=== PATIENT | female | born 1965 | race Caucasian/White ===

== ENCOUNTER 2018-09-25 17:51 | Inpatient (IN) | payer MEDICAID | END 2018-09-27 16:30 | disposition home or self-care (01) | LOC: PCU 3S 09-26 02:02 → ER 17:51 → ED HOLD 19:56 ==

== ENCOUNTER 2020-06-12 05:59 | Inpatient (IN) | payer MEDICAID ==
[~2020-06-12] VITALS: Ht 165.1 cm; Wt 113.6 kg
[~2020-06-12 05:59] MED LIST: ALB0.5UD IH; CYCL-394 PO; DICY10CA88 PO; FENO134C PO; HYDR-3686 PO; LAMO25TA94 PO; OMEP20CA4 PO; SIMV-42 PO; TRAZ-251 PO; ZES10T PO
[2020-06-12] MEDS ORDERED: normal saline 1000ML IV soln IVB STA (06:06)
[2020-06-12] MEDS ORDERED: triamcinolone acetonide 40mg/ml inj IM ONE (06:10)
[2020-06-12] MEDS ORDERED: diphenhydrAMINE 50 mg/ml inj IV ONE (06:10)
[2020-06-12] MEDS ORDERED: epiNEPHrine 1 mg/ml inj SQ ONE (06:10)
[2020-06-12] MEDS ORDERED: methylPREDNISolone sod succ 125mg/2ml vial IV ONE (06:10)
[2020-06-12] MEDS ORDERED: ipratropium/albuterol 3ml nebule NEB ONE (06:10)
[2020-06-12] MEDS ORDERED: famotidine/PF 10 mg/ml inj IV ONE (06:10)
--- NOTE | 2020-06-12 06:49 | NUR ---
pt state that she is having a reaction to lisiopril her dr just lowered her dose from 20 to 10 mg once a day
--- NOTE | 2020-06-12 06:52 | NUR ---
asking more she stated that she did have some armenian spicy chips that she has never had before round noon and around 1999 is when she noticed the swelling
[2020-06-12] MEDS ORDERED: tranexamic acid 100mg/ml inj. IV ONE (07:25)
[2020-06-12 08:18] LABS: BASOPHILS % (AUTO) 0.1 % (0-1); EOSINOPHILS % (AUTO) 0.2 % (0-6); HEMATOCRIT 42.8 % (35.0-45.0); HEMOGLOBIN 14.5 g/dl (12.0-16.0); LYMPHOCYTES % (AUTO) 10.1 % (21-51); MEAN CORPUSCULAR HEMOGLOBIN 29.8 PG (27.0-31.0); MEAN CORPUSCULAR HGB CONC 33.9 g/dL (33.0-36.5); MEAN CORPUSCULAR VOLUME 87.9 FL (78-98); MONOCYTES # (AUTO) 0.2 X10'3 (0-0.9); MONOCYTES % (AUTO) 2.3 % (2-12); NEUTROPHILS # (AUTO) 8.4 X10'3 (1.8-7.7); NEUTROPHILS % (AUTO) 87.3 % (42-75); PLATELET COUNT 196 X10'3 (140-440); RED BLOOD COUNT 4.87 X10'6 (4.20-5.60); RED CELL DISTRIBUTION WIDTH 14.5 % (11.5-14.5); WHITE BLOOD COUNT 9.6 X10'3 (4.5-11.0)
[2020-06-12] MEDS ORDERED: DIVA-81 PO (08:45)
[2020-06-12] MEDS ORDERED: BUSP10TA11 PO (08:45)
[2020-06-12] MEDS ORDERED: MELA10TA PO (08:45)
[2020-06-12] MEDS ORDERED: ROSU5TAB PO (08:45)
[2020-06-12] MEDS ORDERED: ALB0.5UD IH (08:45)
[2020-06-12] MEDS ORDERED: HYDR12.55 PO (08:45)
[2020-06-12] MEDS ORDERED: BUDE0.5A11 NEB (08:45)
[2020-06-12] MEDS ORDERED: DIVA500T9 PO (08:45)
[2020-06-12] MEDS ORDERED: METF500T PO (08:45)
[2020-06-12] MEDS ORDERED: GABA-530 PO (08:45)
[2020-06-12] MEDS ORDERED: LEVO25CA4 PO (08:45)
[2020-06-12] MEDS ORDERED: potassium CL 10mEq/100ml bag 100 ML IV PRN ×2 (09:05)
[2020-06-12] MEDS ORDERED: MESSAGE TO PHARMACY PO ONE (09:05)
[2020-06-12] MEDS ORDERED: albuterol 2.5 MG/3 ML nebule NEB PRN (09:05)
[2020-06-12] MEDS ORDERED: acetaminophen 325mg tablet PO PRN (09:05)
[2020-06-12] MEDS ORDERED: potassium Cl 20 mEq SR tablet PO PRN ×2 (09:05)
[2020-06-12] MEDS ORDERED: magnesium 2GM in 50ml NS 50 ML IV PRN (09:05)
[2020-06-12] MEDS ORDERED: insulin Lispro (HumaLOG) vial - multi-dose SQ SCH (09:05)
[2020-06-12] MEDS ORDERED: glucagon, human recombinant 1mg kit SUBCUT PRN (09:05)
[2020-06-12] MEDS ORDERED: dextrose ORAL solution 15 GM/59 ML bottle PO PRN ×2 (09:05)
[2020-06-12] MEDS ORDERED: dextrose 50%-water 50ml dispensing syringe IV PRN ×2 (09:05)
[2020-06-12] MEDS ORDERED: magnesium Cl slow-release 64mg tablet PO PRN (09:05)
[2020-06-12] MEDS ORDERED: ondansetron/PF 4mg/2ml inj IV PRN (09:05)
[2020-06-12] MEDS ORDERED: magnesium 4gm in 100ml NS 100 ML IV PRN (09:05)
[2020-06-12] MEDS: normal saline 1000ml 1,000 ML IV SCH (09:38)
[2020-06-12] MEDS: loratadine 10mg tablet PO SCH (09:38)
[2020-06-12] MEDS: montelukast 10mg tablet PO SCH (09:39)
[2020-06-12] MEDS: pantoprazole 40mg Tablet.DR PO SCH ×2 (09:39→20:15)
[2020-06-12 09:55] LABS: CLARITY,URINE CLEAR (Clear); COLOR,URINE YELLOW (Yellow); GLUCOSE, URINE NEGATIVE (Neg); KETONES,URINE TRACE mg/dl (Neg); LEUKOCYTE ESTERASE ,URINE NEGATIVE (Neg); NITRITES, URINE NEGATIVE (Neg); OCCULT BLOOD,URINE NEGATIVE (Neg); PROTEIN,URINE NEGATIVE (Neg)
[2020-06-12 09:56] LABS: UA COLLECTION TYPE CLN CATCH MIDSTREAM
[2020-06-12 10:08] LABS: ALANINE AMINOTRANSFERASE 16 U/L (12-78); ALBUMIN 3.1 G/DL (3.4-5.0); ALBUMIN/GLOBULIN RATIO 0.9 (1.1-1.5); ALKALINE PHOSPHATASE 68 IU/L (46-116); ANION GAP 5 (8-16); ASPARTATE AMINO TRANSFERASE 13 U/L (10-37); BILIRUBIN,TOTAL 0.6 MG/DL (0.1-1.0); BLOOD UREA NITROGEN 6 MG/DL (7-18); BUN/CREATININE RATIO 10.5 (6.6-38.0); CALCIUM 8.6 MG/DL (8.5-10.1); CHLORIDE 100 MMOL/L (99-107); CREATININE 0.57 MG/DL (0.40-0.90); GLUCOSE 133 MG/DL (70-104); HEMOGLOBIN A1C 5.7 % (4.5-6.2); POTASSIUM 3.9 MMOL/L (3.5-5.1); SODIUM 135 MMOL/L (135-145); TOTAL CARBON DIOXIDE 30.1 MMOL/L (24-32); TOTAL PROTEIN 6.4 G/DL (6.4-8.2); eGFR > 90 ML/MIN
[2020-06-12] MEDS ORDERED: BUDE10.2 INH (13:12)
--- NOTE | 2020-06-12 13:43 | NUR ---
swelling in face and hands decrecing pt states she even feels like the swelling is going down
--- NOTE | 2020-06-12 15:10 | NUR ---
pt got back from the bathroom and says she feels like her face is swelling some more again R side of face does appear to be a littel bit more swollen her eye was starting to open but now appear swollen and not opening much again
--- NOTE | 2020-06-12 16:23 | NUR ---
dr sims in to see pt feels swelling has not increased
[2020-06-12 20:00] VITALS: BP 136/76
[2020-06-12] MEDS: K and/or MAG REPLACEMENT MC SCH (20:00)
[2020-06-12] MEDS: methylPREDNISolone sod succ/PF 40mg inj. IV SCH (20:14)
[2020-06-12] MEDS: divalproex sodium 500mg tablet.DR PO SCH (20:15)
[2020-06-12] MEDS: busPIRone 5mg tablet PO SCH (20:15)
[2020-06-12] MEDS: docusate sod 100mg capsule PO SCH (20:15)
[2020-06-12] MEDS: heparin, porcine 5000 units/ml vial SQ SCH (20:17)
[2020-06-12] MEDS: acetaminophen 325mg tablet PO PRN (20:18)
[2020-06-12] MEDS: diphenhydrAMINE 25mg capsule PO PRN (20:19)
[2020-06-12] MEDS ORDERED: insulin glargine (Lantus) pen - multi-dose SQ SCH (21:00)
--- NOTE | 2020-06-12 21:00 | NUR ---
PT S/P ALLERGIC REACTION. PT WITH GENERALIZED SWELLING AND FACIAL SWELLING AND LIPS BUT DOES NOT INCLUDE HER TONGUE. PT ALSO HAS HIVES OVER MUCH OF HER BODY.
[2020-06-13] MEDS: normal saline 1000ml 1,000 ML IV SCH ×2 (00:23→13:41)
[2020-06-13 02:00] VITALS: BP 109/65
[2020-06-13] MEDS: diphenhydrAMINE 25mg capsule PO PRN (06:07)
--- NOTE | 2020-06-13 06:34 | NUR ---
Problems reprioritized. Patient report given, questions answered & plan of care reviewed with LAVINIA. Addendum: 06/13/20 at 0635 by Artem Mast RN Amended: Links added.
--- NOTE | 2020-06-13 06:38 | NUR ---
Patient in room PCU 3012. I have received report from SANDI Rick and had the opportunity to ask questions and assume patient care.
[2020-06-13 06:57] VITALS: BP 127/67
[2020-06-13 06:59] LABS: BASOPHILS % (AUTO) 0.1 % (0-1); EOSINOPHILS % (AUTO) 0 % (0-6); HEMATOCRIT 37.1 % (35.0-45.0); HEMOGLOBIN 12.6 g/dl (12.0-16.0); LYMPHOCYTES # (AUTO) 0.8 X10'3 (1.1-4.8); LYMPHOCYTES % (AUTO) 6.4 % (21-51); MEAN CORPUSCULAR HEMOGLOBIN 29.8 PG (27.0-31.0); MEAN CORPUSCULAR HGB CONC 33.9 g/dL (33.0-36.5); MEAN CORPUSCULAR VOLUME 88.1 FL (78-98); MEAN PLATELET VOLUME 7.7 FL (7.4-10.4); MONOCYTES # (AUTO) 0.4 X10'3 (0-0.9); MONOCYTES % (AUTO) 2.8 % (2-12); NEUTROPHILS # (AUTO) 11.2 X10'3 (1.8-7.7); NEUTROPHILS % (AUTO) 90.7 % (42-75); PLATELET COUNT 181 X10'3 (140-440); RED BLOOD COUNT 4.21 X10'6 (4.20-5.60); RED CELL DISTRIBUTION WIDTH 14.7 % (11.5-14.5); WHITE BLOOD COUNT 12.3 X10'3 (4.5-11.0)
[2020-06-13] MEDS: divalproex sodium 500mg tablet.DR PO SCH (07:04)
[2020-06-13] MEDS: busPIRone 5mg tablet PO SCH (07:04)
[2020-06-13] MEDS: montelukast 10mg tablet PO SCH (07:04)
[2020-06-13] MEDS: docusate sod 100mg capsule PO SCH (07:04)
[2020-06-13] MEDS: loratadine 10mg tablet PO SCH (07:04)
[2020-06-13] MEDS: methylPREDNISolone sod succ/PF 40mg inj. IV SCH (07:05)
[2020-06-13] MEDS: pantoprazole 40mg Tablet.DR PO SCH (07:05)
[2020-06-13 07:19] LABS: ALANINE AMINOTRANSFERASE 14 U/L (12-78); ALBUMIN 2.8 G/DL (3.4-5.0); ALBUMIN/GLOBULIN RATIO 0.8 (1.1-1.5); ALKALINE PHOSPHATASE 60 IU/L (46-116); ANION GAP 7 (8-16); ASPARTATE AMINO TRANSFERASE 8 U/L (10-37); BILIRUBIN,TOTAL 0.3 MG/DL (0.1-1.0); BLOOD UREA NITROGEN 10 MG/DL (7-18); BUN/CREATININE RATIO 19.6 (6.6-38.0); CALCIUM 9.7 MG/DL (8.5-10.1); CHLORIDE 105 MMOL/L (99-107); CREATININE 0.51 MG/DL (0.40-0.90); GLUCOSE 146 MG/DL (70-104); POTASSIUM 4.3 MMOL/L (3.5-5.1); SODIUM 139 MMOL/L (135-145); TOTAL PROTEIN 6.1 G/DL (6.4-8.2); eGFR > 90 ML/MIN
[2020-06-13] MEDS: heparin, porcine 5000 units/ml vial SQ SCH (07:20)
[2020-06-13] MEDS ORDERED: atorvastatin 20mg tablet PO SCH (08:00)
[2020-06-13] MEDS: K and/or MAG REPLACEMENT MC SCH (08:00)
--- NOTE | 2020-06-13 08:00 | NUR ---
Patient c/o of continued itching, swelling and meds given have not been effective. Dr. Felder notified. PAGER ID: [phone] MESSAGE: [id number]- Anthony De Guzman c/o increased swelling, itching and rashes. given Solumedrol and Claritin 0700 and Benadryl given 0607 and is not effective. Thank you= Dontrell [phone] Addendum: 06/13/20 at 0803 by Dontrell Camarillo RN Patient is alert and oriented and does not c/o SOB. Able to hold conversation. Will continue to monitor.
[2020-06-13] MEDS ORDERED: diphenhydrAMINE 25mg capsule PO ONE (08:20)
--- NOTE | 2020-06-13 10:20 | NUR ---
Patient in room ALEXANDER 350. I have received report from Wen JUNIOR in PCU and had the opportunity to ask questions and will assume patient care once to Med/Surg unit.
--- NOTE | 2020-06-13 10:27 | NUR ---
Problems reprioritized. Patient report given, questions answered & plan of care reviewed with SANDI Rowe.
--- NOTE | 2020-06-13 10:35 | NUR ---
Patient transferred to room 350a via wheelchair with all belongings.
--- NOTE | 2020-06-13 10:40 | NUR ---
Pt arrived to Med/Surg unit via w/c and accompanied by staff member, to room 350A. Pt oriented to room and assessed. No s/sx distress, no c/o at this time, given opportunity to ask qustions, answers provided. Will continue to monitor.
[2020-06-13 11:00] VITALS: BP 126/75
[2020-06-13] MEDS ORDERED: DIPH-423 PO (11:36)
[2020-06-13] MEDS ORDERED: PRED10TA23 PO (11:37)
[2020-06-13] MEDS: acetaminophen 325mg tablet PO PRN (12:48)
--- NOTE | 2020-06-13 14:00 | NUR ---
Pt stable and appropriate for d/c. PIV d/c'd cannula intact. Reviewed with Pt all d/c instructions and meds with patient given opportunity to ask questions, answers provided and pt verbalized understanding. Prescriptions escripted to pharmacy of choice. Pt to call PCP with any questions/concerns, s/sx of complications/infection or return to nearest ED. Pt escorted to front lobby by staff member via w/c with all personal belongings. D/C'd home in private vehicle driven by family.
== END 2020-06-13 14:00 | disposition home or self-care (01) | DRG 385 ==
LOC: ER 06:00 → ED HOLD 09:02 → PCU 3S 19:30 → SUR 3N 06-13 10:30
PROVIDERS: ADMIT Internal Medicine; ATTEND Internal Medicine
DX: L50.0 Allergic urticaria (principal); Z88.8 Allergy status to other drugs, medicaments and biological substances; G89.29 Other chronic pain; E78.5 Hyperlipidemia, unspecified; I25.10 Atherosclerotic heart disease of native coronary artery without angina pectoris; J44.9 Chronic obstructive pulmonary disease, unspecified; F32.9 Major depressive disorder, single episode, unspecified; K21.9 Gastro-esophageal reflux disease without esophagitis; M54.9 Dorsalgia, unspecified; I10 Essential (primary) hypertension; Z88.1 Allergy status to other antibiotic agents; E78.00 Pure hypercholesterolemia, unspecified; E03.9 Hypothyroidism, unspecified; T46.4X5A Adverse effect of angiotensin-converting-enzyme inhibitors, initial encounter; E11.9 Type 2 diabetes mellitus without complications; Z90.710 Acquired absence of both cervix and uterus; Z90.49 Acquired absence of other specified parts of digestive tract; Z87.891 Personal history of nicotine dependence; Y92.89 Other specified places as the place of occurrence of the external cause
CPT/HCPCS: 36415; 71045; 80053; 81003; 82948; 83036; 83735; 85025; 85651; 93005; 94640; 94760; 96372; 96374; 99285; G0378; J0171; J1200; J1644; J1815; J2920; J2930; J3301; J3490; J7030; Q0163

== ENCOUNTER 2020-11-07 11:42 | Emergency (ER) | payer MEDICAID ==
[~2020-11-07] VITALS: Ht 165.1 cm; Wt 114.0 kg
[~2020-11-07 11:42] MED LIST changes: +BUDE10.2 INH; +BUSP10TA11 PO; +DIPH-423 PO; +DIVA500T9 PO; -FENO134C PO; +GABA-530 PO; -HYDR-3686 PO; +HYDR12.55 PO; -LAMO25TA94 PO; +LEVO25CA4 PO; +MELA10TA PO; +METF500T PO; +ROSU5TAB PO; -SIMV-42 PO; -TRAZ-251 PO; -ZES10T PO
[2020-11-07 12:22] VITALS: BP 152/80
[2020-11-07 12:50] LABS: CLARITY,URINE SLIGHTLY CLOUDY (Clear); COLOR,URINE YELLOW (Yellow); GLUCOSE, URINE NEGATIVE (Neg); KETONES,URINE NEGATIVE (Neg); LEUKOCYTE ESTERASE ,URINE TRACE (Neg); NITRITES, URINE NEGATIVE (Neg); OCCULT BLOOD,URINE NEGATIVE (Neg); PROTEIN,URINE NEGATIVE (Neg); UROBILINOGEN,URINE 0.2 E.U/dL (0.2-1.0)
[2020-11-07 12:55] LABS: UA COLLECTION TYPE CLN CATCH MIDSTREAM
[2020-11-07 12:57] LABS: HYALINE CASTS 0-3 /LPF (NEGATIVE); MUCUS STRANDS FEW /LPF (Neg); SQUAMOUS EPITHELIAL CELL,UR FEW /LPF (FEW)
[2020-11-07 12:58] LABS: BACTERIA,URINE FEW /HPF (Neg); RBC,URINE 0-2 /HPF (0-2); WBC,URINE 0-4 /HPF (0-4)
[2020-11-07 12:59] LABS: BASOPHILS % (AUTO) 0.6 % (0-1); EOSINOPHILS # (AUTO) 0.2 X10'3 (0-0.9); EOSINOPHILS % (AUTO) 2.5 % (0-6); HEMATOCRIT 43.5 % (35.0-45.0); HEMOGLOBIN 14.7 g/dl (12.0-16.0); LYMPHOCYTES # (AUTO) 2.5 X10'3 (1.1-4.8); LYMPHOCYTES % (AUTO) 33.6 % (21-51); MEAN CORPUSCULAR HEMOGLOBIN 29.8 PG (27.0-31.0); MEAN CORPUSCULAR HGB CONC 33.8 g/dL (33.0-36.5); MEAN CORPUSCULAR VOLUME 88.2 FL (78-98); MEAN PLATELET VOLUME 7.2 FL (7.4-10.4); MONOCYTES # (AUTO) 0.5 X10'3 (0-0.9); NEUTROPHILS # (AUTO) 4.2 X10'3 (1.8-7.7); NEUTROPHILS % (AUTO) 56.3 % (42-75); PLATELET COUNT 298 X10'3 (140-440); RED BLOOD COUNT 4.93 X10'6 (4.20-5.60); WHITE BLOOD COUNT 7.4 X10'3 (4.5-11.0)
[2020-11-07 13:07] LABS: ALANINE AMINOTRANSFERASE 25 U/L (12-78); ALBUMIN 3.7 G/DL (3.4-5.0); ALKALINE PHOSPHATASE 97 IU/L (46-116); ANION GAP 11 (8-16); ASPARTATE AMINO TRANSFERASE 19 U/L (10-37); BILIRUBIN,TOTAL 0.3 MG/DL (0.1-1.0); BLOOD UREA NITROGEN 5 MG/DL (7-18); BUN/CREATININE RATIO 7.1 (6.6-38.0); CALCIUM 8.8 MG/DL (8.5-10.1); CHLORIDE 98 MMOL/L (99-107); GLUCOSE 89 MG/DL (70-104); LIPASE 95 U/L (73-393); POTASSIUM 3.9 MMOL/L (3.5-5.1); SODIUM 140 MMOL/L (135-145); TOTAL CARBON DIOXIDE 30.6 MMOL/L (24-32); TOTAL PROTEIN 7.4 G/DL (6.4-8.2); eGFR 86 ML/MIN
[2020-11-07] MEDS ORDERED: CEPH250T PO (13:57)
[2020-11-07] MEDS ORDERED: SULF1TAB45 PO (13:57)
[2020-11-07] MEDS ORDERED: bacitracin 15gm ointment TP ONE (14:45)
== END 2020-11-07 15:23 | disposition home or self-care (01) ==
LOC: ER 11:43
DX: N61.1 Abscess of the breast and nipple (principal); B95.8 Unspecified staphylococcus as the cause of diseases classified elsewhere; E78.00 Pure hypercholesterolemia, unspecified; I10 Essential (primary) hypertension; J45.909 Unspecified asthma, uncomplicated; K21.9 Gastro-esophageal reflux disease without esophagitis; E11.9 Type 2 diabetes mellitus without complications; E07.9 Disorder of thyroid, unspecified; G89.29 Other chronic pain; Z90.49 Acquired absence of other specified parts of digestive tract; Z98.51 Tubal ligation status; Z90.710 Acquired absence of both cervix and uterus; Z79.899 Other long term (current) drug therapy; Z88.1 Allergy status to other antibiotic agents; Z88.6 Allergy status to analgesic agent
CPT/HCPCS: 36415; 80053; 81001; 83690; 85025; 87088; 99283

== ENCOUNTER 2020-11-14 15:26 | Inpatient (IN) | payer MEDICAID ==
[~2020-11-14] VITALS: Ht 165.1 cm; Wt 110.8 kg
[~2020-11-14 15:26] MED LIST changes: +CEPH250T PO; +SULF1TAB45 PO
[2020-11-14 16:05] LABS: BASOPHILS # (AUTO) 0.1 X10'3 (0-0.2); BASOPHILS % (AUTO) 0.7 % (0-1); EOSINOPHILS # (AUTO) 0.2 X10'3 (0-0.9); EOSINOPHILS % (AUTO) 2.2 % (0-6); HEMATOCRIT 41.2 % (35.0-45.0); HEMOGLOBIN 13.9 g/dl (12.0-16.0); LYMPHOCYTES # (AUTO) 2.5 X10'3 (1.1-4.8); MEAN CORPUSCULAR HEMOGLOBIN 29.5 PG (27.0-31.0); MEAN CORPUSCULAR HGB CONC 33.6 g/dL (33.0-36.5); MEAN CORPUSCULAR VOLUME 87.7 FL (78-98); MEAN PLATELET VOLUME 7.5 FL (7.4-10.4); MONOCYTES # (AUTO) 0.6 X10'3 (0-0.9); MONOCYTES % (AUTO) 6.3 % (2-12); NEUTROPHILS # (AUTO) 5.8 X10'3 (1.8-7.7); NEUTROPHILS % (AUTO) 63.8 % (42-75); PLATELET COUNT 281 X10'3 (140-440); RED CELL DISTRIBUTION WIDTH 15.6 % (11.5-14.5); WHITE BLOOD COUNT 9.1 X10'3 (4.5-11.0)
[2020-11-14 16:12] LABS: ALBUMIN 3.6 G/DL (3.4-5.0); ALBUMIN/GLOBULIN RATIO 1.1 (1.1-1.5); ALKALINE PHOSPHATASE 91 IU/L (46-116); ANION GAP 10 (8-16); ASPARTATE AMINO TRANSFERASE 9 U/L (10-37); BILIRUBIN,TOTAL 0.2 MG/DL (0.1-1.0); BLOOD UREA NITROGEN 12 MG/DL (7-18); BUN/CREATININE RATIO 17.6 (6.6-38.0); CALCIUM 8.8 MG/DL (8.5-10.1); CHLORIDE 97 MMOL/L (99-107); CREATININE 0.68 MG/DL (0.40-0.90); GLUCOSE 94 MG/DL (70-104); SODIUM 135 MMOL/L (135-145); TOTAL CARBON DIOXIDE 28.5 MMOL/L (24-32); eGFR 89 ML/MIN
[2020-11-14 16:21] LABS: ALANINE AMINOTRANSFERASE 7 U/L (12-78)
[2020-11-14] MEDS ORDERED: aspirin 81mg tab.chew PO ONE (18:10)
[2020-11-14] MEDS: nitroGLYCERIN 0.4mg SUBLingual tab SL PRN ×3 (18:41→19:37)
[2020-11-14] MEDS ORDERED: acetaminophen 325mg tablet PO ONE (18:45)
--- NOTE | 2020-11-14 18:55 | NUR ---
Chest pain 5/10 after first nitro administration. Pain 3/10 after second nitro administration. Pt given tylenol for associated headache. ASA not administered r/t patient allergy
--- NOTE | 2020-11-14 19:30 | NUR ---
report given and assumed care.
[2020-11-14] MEDS ORDERED: DULO60CA65 PO (19:34)
[2020-11-14] MEDS ORDERED: CLON0.2T PO (19:34)
[2020-11-14] MEDS ORDERED: ondansetron/PF 4mg/2ml inj IV ONE (19:40)
[2020-11-14] MEDS ORDERED: morphine 4 MG/ML inj SYRINge IV ONE (19:40)
[2020-11-14] MEDS ORDERED: mag hydrox/Alum hydrox/simeth 30ml oral suspension PO PRN (20:35)
[2020-11-14] MEDS ORDERED: potassium Cl 20 mEq SR tablet PO PRN ×2 (20:35)
[2020-11-14] MEDS ORDERED: insulin Lispro (HumaLOG) vial - multi-dose SQ SCH (20:35)
[2020-11-14] MEDS ORDERED: magnesium hydroxide 30ml (MOM) UD suspension PO PRN (20:35)
[2020-11-14] MEDS ORDERED: potassium Cl 40MEQ/1/2NS 520ml 520 ML IV PRN ×2 (20:35)
[2020-11-14] MEDS ORDERED: dextrose ORAL solution 15 GM/59 ML bottle PO PRN ×2 (20:35)
[2020-11-14] MEDS ORDERED: ondansetron/PF 4mg/2ml inj IV PRN (20:35)
[2020-11-14] MEDS ORDERED: regadenoson 0.4mg/5ml syringe IV PRN (20:35)
[2020-11-14] MEDS ORDERED: magnesium 2GM in 50ml NS 50 ML IV PRN (20:35)
[2020-11-14] MEDS ORDERED: acetaminophen 325mg tablet PO PRN ×2 (20:35)
[2020-11-14] MEDS ORDERED: metoprolol tartrate 1mg/ml inj IV PRN (20:35)
[2020-11-14] MEDS ORDERED: HYDROcodone/acetaminophen 10/325mg tab PO PRN (20:35)
[2020-11-14] MEDS ORDERED: aminophylline 250mg/10ml inj. IV PRN (20:35)
[2020-11-14] MEDS ORDERED: magnesium 4gm in 100ml NS 100 ML IV PRN (20:35)
[2020-11-14] MEDS ORDERED: glucagon, human recombinant 1mg kit SUBCUT PRN (20:35)
[2020-11-14] MEDS ORDERED: nitroGLYCERIN 0.4mg SUBLingual tab SL PRN (20:35)
[2020-11-14] MEDS ORDERED: MESSAGE TO PHARMACY PO ONE (20:35)
[2020-11-14] MEDS ORDERED: dextrose 50%-water 50ml dispensing syringe IV PRN ×2 (20:35)
[2020-11-14 21:00] LABS: HEMOGLOBIN A1C 6.3 % (4.5-6.2)
[2020-11-14] MEDS ORDERED: insulin glargine (Lantus) pen - multi-dose SQ SCH (21:00)
--- NOTE | 2020-11-14 21:08 | NUR ---
blood sugar checked 79. will hold med
[2020-11-14] MEDS: normal saline 1000ml 1,000 ML IV SCH (21:23)
[2020-11-14 22:35] VITALS: BP 128/52
[2020-11-14] MEDS: cloNIDine 0.1 mg tablet PO SCH (23:08)
--- NOTE | 2020-11-14 23:35 | NUR ---
Received patient report from SANDI Garcia, Patient arrived via [place], patient walked from [facility] to bed. Belongings arrived to unit with patient.
[2020-11-15] VITALS (9 sets, daily range): BP systolic 94–146; BP diastolic 46–94
[2020-11-15] MEDS: HYDROcodone/acetaminophen 5mg/325mg tablet PO PRN ×2 (01:16→05:41)
[2020-11-15] MEDS ORDERED: albuterol 2.5 MG/3 ML nebule NEB SCH (02:00)
[2020-11-15] MEDS: albuterol 2.5 MG/3 ML nebule NEB PRN ×2 (03:16→07:29)
[2020-11-15 05:58] LABS: BASOPHILS % (AUTO) 0.5 % (0-1); EOSINOPHILS # (AUTO) 0.2 X10'3 (0-0.9); EOSINOPHILS % (AUTO) 3.3 % (0-6); HEMATOCRIT 38.5 % (35.0-45.0); HEMOGLOBIN 12.9 g/dl (12.0-16.0); LYMPHOCYTES # (AUTO) 1.8 X10'3 (1.1-4.8); MEAN CORPUSCULAR HEMOGLOBIN 29.4 PG (27.0-31.0); MEAN CORPUSCULAR HGB CONC 33.5 g/dL (33.0-36.5); MEAN CORPUSCULAR VOLUME 87.9 FL (78-98); MEAN PLATELET VOLUME 7.6 FL (7.4-10.4); MONOCYTES # (AUTO) 0.4 X10'3 (0-0.9); MONOCYTES % (AUTO) 7.8 % (2-12); NEUTROPHILS # (AUTO) 2.7 X10'3 (1.8-7.7); NEUTROPHILS % (AUTO) 52.4 % (42-75); PLATELET COUNT 219 X10'3 (140-440); RED BLOOD COUNT 4.38 X10'6 (4.20-5.60); RED CELL DISTRIBUTION WIDTH 15.6 % (11.5-14.5); WHITE BLOOD COUNT 5.1 X10'3 (4.5-11.0)
[2020-11-15 06:19] LABS: ALANINE AMINOTRANSFERASE 19 U/L (12-78); ALBUMIN 3.4 G/DL (3.4-5.0); ALBUMIN/GLOBULIN RATIO 1.1 (1.1-1.5); ALKALINE PHOSPHATASE 75 IU/L (46-116); ANION GAP 5 (8-16); ASPARTATE AMINO TRANSFERASE 15 U/L (10-37); BILIRUBIN,TOTAL 0.3 MG/DL (0.1-1.0); BLOOD UREA NITROGEN 10 MG/DL (7-18); BUN/CREATININE RATIO 16.1 (6.6-38.0); CALCIUM 9.1 MG/DL (8.5-10.1); CHLORIDE 102 MMOL/L (99-107); CHOL/HDL RATIO 9.1 (0.00-4.99); CHOLESTEROL 354 MG/DL (0-200); CREATININE 0.62 MG/DL (0.40-0.90); GLUCOSE 99 MG/DL (70-104); HDL CHOLESTEROL 39 MG/DL (35-60); LDL CHOLESTEROL 222 MG/DL (50-100); MAGNESIUM 2.2 MG/DL (1.5-2.4); POTASSIUM 3.8 MMOL/L (3.5-5.1); SODIUM 135 MMOL/L (135-145); TOTAL CARBON DIOXIDE 28.4 MMOL/L (24-32); TOTAL PROTEIN 6.6 G/DL (6.4-8.2); TRIGLYCERIDES 305 MG/DL (20-135); eGFR > 90 ML/MIN
--- NOTE | 2020-11-15 06:30 | NUR ---
Patient in room ORTHO 4016. I have received report from Lincoln JUNIOR and had the opportunity to ask questions and assume patient care.
[2020-11-15] MEDS: normal saline 1000ml 1,000 ML IV SCH (06:35)
--- NOTE | 2020-11-15 06:36 | NUR ---
Problems reprioritized. Patient report given, questions answered & plan of care reviewed with SANDI Noble.
[2020-11-15] MEDS ORDERED: pantoprazole 40mg Tablet.DR PO SCH (07:30)
--- NOTE | 2020-11-15 07:59 | NUR ---
PAGER ID: [phone] MESSAGE: Real Cunningham [id number] Cammy Alex Patient gets clostrphobic and [employer] was thinking maybe one time dose of Ativan for this Test. Thanks Real.
[2020-11-15] MEDS ORDERED: divalproex sodium 500mg tablet.DR PO SCH (08:00)
[2020-11-15] MEDS ORDERED: duloxetine 30mg CAPSULE.DR PO SCH (08:00)
[2020-11-15] MEDS ORDERED: K and/or MAG REPLACEMENT MC SCH (08:00)
[2020-11-15] MEDS ORDERED: budesonide 0.5mg/2ml UD nebule IH SCH (08:00)
[2020-11-15] MEDS ORDERED: HYDROchlorothiazide 12.5mg capsule PO SCH (08:00)
[2020-11-15] MEDS ORDERED: levoTHYROXINE 25mcg tablet PO SCH (08:00)
[2020-11-15] MEDS ORDERED: gabapentin 300mg capsule PO SCH (08:00)
[2020-11-15] MEDS: cloNIDine 0.1 mg tablet PO SCH ×2 (08:23→13:19)
[2020-11-15] MEDS ORDERED: LORazepam 2 mg/ml vial IV ONE (09:10)
[2020-11-15] MEDS ORDERED: atorvastatin 20mg tablet PO SCH (09:15)
[2020-11-15] MEDS ORDERED: levoTHYROXINE 75mcg tablet PO SCH (09:18)
[2020-11-15] MEDS ORDERED: PERFLUTREN PROTEIN-A MICROSPHR 0.22 MG/ML 3ML VIAL IV ONE (12:00)
--- NOTE | 2020-11-15 12:41 | NUR ---
PAGER ID: [phone] MESSAGE: Real Cunningham [id number] Re: Kaci Alex [id number] Patient Bernarda report is available for review. Thanks
[2020-11-15] MEDS ORDERED: CLON0.1T2 PO (14:25)
[2020-11-15] MEDS ORDERED: LEVO75TA7 PO (14:25)
[2020-11-15] MEDS ORDERED: ATOR20TA66 PO (14:25)
--- NOTE | 2020-11-15 16:03 | NUR ---
PATIENT DISCHARGE WITH FAMILY IN ROOM. PATIENT DISCHARGE INCLUDED NEW MEDICATIONS AND CHANGES TO CURRENT MEDICATIONS. PATIENT IV WAS TAKEN OUT AT TIME OF DISCHARGE AND CANULA WAS WHOLE AND INTACT UPON INSPECTION. PATIENT LEFT WITH ALL BELONGINGS AND WAS TAKEN TO PRIVATE VEHICLE VIA WHEEL CHAIR BY PCT AT TIME OF DISCHARGE.
[2020-11-15] MEDS ORDERED: enoxaparin 40mg/0.4ml syringe SQ SCH (20:00)
[2020-11-16] MEDS ORDERED: levoTHYROXINE 75mcg tablet PO SCH (08:00)
== END 2020-11-15 15:50 | disposition home or self-care (01) | DRG 198 ==
LOC: ER 15:27 → OBSVTOIN 20:35 → ED HOLD 20:35 → ORTHO 4S 22:35
PROVIDERS: ADMIT Family Medicine; ATTEND Family Medicine
PROC: 4A02XM4 Measurement of Cardiac Total Activity, External Approach (ICD-10-PCS; principal; 2020-11-15)
PROC: 3E073KZ Introduction of Other Diagnostic Substance into Coronary Artery, Percutaneous Approach (ICD-10-PCS; 2020-11-15)
DX: I25.119 Atherosclerotic heart disease of native coronary artery with unspecified angina pectoris (principal); E11.42 Type 2 diabetes mellitus with diabetic polyneuropathy; E11.59 Type 2 diabetes mellitus with other circulatory complications; E78.00 Pure hypercholesterolemia, unspecified; F32.9 Major depressive disorder, single episode, unspecified; G89.29 Other chronic pain; K21.9 Gastro-esophageal reflux disease without esophagitis; M54.9 Dorsalgia, unspecified; I10 Essential (primary) hypertension; J44.9 Chronic obstructive pulmonary disease, unspecified; M79.7 Fibromyalgia; Z82.49 Family history of ischemic heart disease and other diseases of the circulatory system; Z90.49 Acquired absence of other specified parts of digestive tract; Z90.710 Acquired absence of both cervix and uterus; Z88.8 Allergy status to other drugs, medicaments and biological substances; Z98.51 Tubal ligation status
CPT/HCPCS: 36415; 71045; 78452; 80053; 80061; 82948; 83036; 83735; 83880; 84443; 84484; 85025; 87081; 93005; 93017; 93306; 94640; 94760; 96374; 96375; 99285; A9500; G0378; J1815; J2060; J2270; J2405; J2785; J7030; J7626; Q9956

== ENCOUNTER 2020-11-25 11:13 | Emergency (ER) | payer MEDICAID ==
[~2020-11-25] VITALS: Ht 165.1 cm; Wt 115.2 kg
[~2020-11-25 11:13] MED LIST changes: +ATOR20TA66 PO; -BUSP10TA11 PO; -CEPH250T PO; +CLON0.1T2 PO; -CYCL-394 PO; -DICY10CA88 PO; -DIPH-423 PO; +DULO60CA65 PO; -HYDR12.55 PO; -LEVO25CA4 PO; +LEVO75TA7 PO; -MELA10TA PO; -ROSU5TAB PO; -SULF1TAB45 PO
[2020-11-25] MEDS ORDERED: famotidine/PF 10 mg/ml inj IV ONE (12:00)
[2020-11-25] MEDS ORDERED: LORazepam 2 mg/ml vial IV ONE (12:00)
[2020-11-25] MEDS ORDERED: iohexol 300mg/ml 100ml inj. ONE (12:05)
--- NOTE | 2020-11-25 12:32 | NUR ---
TO CT AT THIS TIME VIA [employer].
[2020-11-25 12:41] LABS: BASOPHILS % (AUTO) 0.6 % (0-1); EOSINOPHILS % (AUTO) 0.4 % (0-6); HEMATOCRIT 39.8 % (35.0-45.0); HEMOGLOBIN 13.1 g/dl (12.0-16.0); LYMPHOCYTES # (AUTO) 1.5 X10'3 (1.1-4.8); LYMPHOCYTES % (AUTO) 22.7 % (21-51); MEAN CORPUSCULAR HEMOGLOBIN 28.5 PG (27.0-31.0); MEAN CORPUSCULAR HGB CONC 32.9 g/dL (33.0-36.5); MEAN CORPUSCULAR VOLUME 86.8 FL (78-98); MEAN PLATELET VOLUME 7.7 FL (7.4-10.4); MONOCYTES # (AUTO) 0.4 X10'3 (0-0.9); MONOCYTES % (AUTO) 5.2 % (2-12); NEUTROPHILS # (AUTO) 4.8 X10'3 (1.8-7.7); NEUTROPHILS % (AUTO) 71.1 % (42-75); PLATELET COUNT 300 X10'3 (140-440); RED BLOOD COUNT 4.59 X10'6 (4.20-5.60); RED CELL DISTRIBUTION WIDTH 15.3 % (11.5-14.5); WHITE BLOOD COUNT 6.8 X10'3 (4.5-11.0)
[2020-11-25 12:52] LABS: ALANINE AMINOTRANSFERASE 24 U/L (12-78); ALBUMIN 3.6 G/DL (3.4-5.0); ALBUMIN/GLOBULIN RATIO 1.2 (1.1-1.5); ALKALINE PHOSPHATASE 79 IU/L (46-116); ANION GAP 11 (8-16); ASPARTATE AMINO TRANSFERASE 19 U/L (10-37); BILIRUBIN,TOTAL 0.3 MG/DL (0.1-1.0); BLOOD UREA NITROGEN 10 MG/DL (7-18); BUN/CREATININE RATIO 19.2 (6.6-38.0); CALCIUM 8.9 MG/DL (8.5-10.1); CHLORIDE 96 MMOL/L (99-107); CREATININE 0.52 MG/DL (0.40-0.90); GLUCOSE 109 MG/DL (70-104); SODIUM 137 MMOL/L (135-145); TOTAL CARBON DIOXIDE 29.8 MMOL/L (24-32); TOTAL PROTEIN 6.7 G/DL (6.4-8.2); eGFR > 90 ML/MIN
[2020-11-25] MEDS ORDERED: MESSAGE TO NURSING PO SCH (13:00)
[2020-11-25] MEDS ORDERED: morphine 4 MG/ML inj SYRINge IV ONE ×2 (13:00→14:05)
[2020-11-25 13:01] LABS: LIPASE 59 U/L (73-393); TROPONIN I < 0.04 NG/ML (0.0-0.05)
[2020-11-25 13:03] VITALS: BP 178/93
--- NOTE | 2020-11-25 13:08 | NUR ---
PATIENT AMBULATED TO BATHROOM AT THIS TIME, STANDBY ASSIST FOR DIZZINESS, NO SIGNS OF DISTRESS NOTED.
[2020-11-25 13:41] LABS: CLARITY,URINE CLEAR (Clear); COLOR,URINE STRAW (Yellow); GLUCOSE, URINE NEGATIVE (Neg); KETONES,URINE 15 mg/dl (Neg); LEUKOCYTE ESTERASE ,URINE NEGATIVE (Neg); NITRITES, URINE NEGATIVE (Neg); OCCULT BLOOD,URINE NEGATIVE (Neg); PROTEIN,URINE TRACE mg/dl (Neg); UROBILINOGEN,URINE 0.2 E.U/dL (0.2-1.0)
[2020-11-25] MEDS ORDERED: PANT20TA18 PO (13:48)
[2020-11-25 13:50] LABS: UA COLLECTION TYPE CLN CATCH MIDSTREAM
[2020-11-25 13:53] LABS: BACTERIA,URINE FEW /HPF (Neg); MUCUS STRANDS FEW /LPF (Neg); RBC,URINE NONE SEEN /HPF (0-2); SQUAMOUS EPITHELIAL CELL,UR FEW /LPF (FEW); WBC,URINE 0-4 /HPF (0-4)
== END 2020-11-25 14:46 | disposition home or self-care (01) ==
LOC: ER 11:14
DX: R10.13 Epigastric pain (principal); R11.0 Nausea; E78.00 Pure hypercholesterolemia, unspecified; I10 Essential (primary) hypertension; J44.9 Chronic obstructive pulmonary disease, unspecified; K21.9 Gastro-esophageal reflux disease without esophagitis; E11.9 Type 2 diabetes mellitus without complications; G89.29 Other chronic pain; F31.9 Bipolar disorder, unspecified; Z90.89 Acquired absence of other organs; Z90.710 Acquired absence of both cervix and uterus; Z98.51 Tubal ligation status; Z98.890 Other specified postprocedural states; Z88.6 Allergy status to analgesic agent; Z88.8 Allergy status to other drugs, medicaments and biological substances; Z79.899 Other long term (current) drug therapy
CPT/HCPCS: 36415; 74178; 80053; 81001; 83690; 84484; 85025; 93005; 96374; 96375; 96376; 99285; J2060; J2270; J3490; Q9967

== ENCOUNTER 2020-11-28 08:41 | Emergency (ER) | payer MEDICAID ==
[~2020-11-28] VITALS: Ht 165.1 cm; Wt 112.3 kg
[~2020-11-28 08:41] MED LIST changes: +PANT20TA18 PO
[2020-11-28] MEDS ORDERED: ondansetron/PF 4mg/2ml inj IV ONE (11:30)
[2020-11-28] MEDS ORDERED: pantoprazole 40 MG vial IV ONE (11:30)
[2020-11-28] MEDS ORDERED: famotidine/PF 10 mg/ml inj IV ONE (11:30)
[2020-11-28 11:32] LABS: ALANINE AMINOTRANSFERASE 28 U/L (12-78); ALBUMIN 3.8 G/DL (3.4-5.0); ALBUMIN/GLOBULIN RATIO 1.2 (1.1-1.5); ALKALINE PHOSPHATASE 85 IU/L (46-116); ANION GAP 10 (8-16); ASPARTATE AMINO TRANSFERASE 26 U/L (10-37); BILIRUBIN,TOTAL 0.4 MG/DL (0.1-1.0); BLOOD UREA NITROGEN 5 MG/DL (7-18); BUN/CREATININE RATIO 11.1 (6.6-38.0); CHLORIDE 97 MMOL/L (99-107); CREATININE 0.45 MG/DL (0.40-0.90); GLUCOSE 109 MG/DL (70-104); LIPASE 76 U/L (73-393); SODIUM 133 MMOL/L (135-145); TOTAL CARBON DIOXIDE 26.5 MMOL/L (24-32); TOTAL PROTEIN 7.1 G/DL (6.4-8.2); eGFR > 90 ML/MIN
[2020-11-28 11:33] LABS: POTASSIUM 3.7 MMOL/L (3.5-5.1)
[2020-11-28 11:52] LABS: BASOPHILS % (AUTO) 0.4 % (0-1); EOSINOPHILS % (AUTO) 0.3 % (0-6); HEMATOCRIT 40.7 % (35.0-45.0); HEMOGLOBIN 13.9 g/dl (12.0-16.0); LYMPHOCYTES # (AUTO) 0.9 X10'3 (1.1-4.8); LYMPHOCYTES % (AUTO) 12.4 % (21-51); MEAN CORPUSCULAR HEMOGLOBIN 29.3 PG (27.0-31.0); MEAN CORPUSCULAR HGB CONC 34.1 g/dL (33.0-36.5); MONOCYTES # (AUTO) 0.5 X10'3 (0-0.9); NEUTROPHILS # (AUTO) 6.2 X10'3 (1.8-7.7); NEUTROPHILS % (AUTO) 80.9 % (42-75); PLATELET COUNT 333 X10'3 (140-440); RED BLOOD COUNT 4.73 X10'6 (4.20-5.60); RED CELL DISTRIBUTION WIDTH 15.5 % (11.5-14.5); WHITE BLOOD COUNT 7.7 X10'3 (4.5-11.0)
[2020-11-28] MEDS ORDERED: normal saline 1000ml 1,000 ML IV ONE (11:55)
[2020-11-28 11:56] VITALS: BP 164/87
--- NOTE | 2020-11-28 11:58 | NUR ---
PA AT BEDSIDE, AWARE OF BP AND NO BM FOR "4 DAYS"
[2020-11-28] MEDS ORDERED: morphine 4 MG/ML inj SYRINge IV ONE (12:15)
[2020-11-28] MEDS ORDERED: ONDA4TAB6 PO (12:34)
[2020-11-28] MEDS ORDERED: PANT20TA18 PO (12:34)
[2020-11-28 13:09] LABS: CLARITY,URINE CLEAR (Clear); COLOR,URINE STRAW (Yellow); GLUCOSE, URINE NEGATIVE (Neg); KETONES,URINE NEGATIVE (Neg); LEUKOCYTE ESTERASE ,URINE NEGATIVE (Neg); NITRITES, URINE NEGATIVE (Neg); OCCULT BLOOD,URINE NEGATIVE (Neg); PH,URINE 8.5 (4.8-8.0); PROTEIN,URINE NEGATIVE (Neg)
[2020-11-28 13:12] LABS: UA COLLECTION TYPE STRAIGHT CATH
== END 2020-11-28 13:45 | disposition home or self-care (01) ==
LOC: ER 08:42
DX: K29.00 Acute gastritis without bleeding (principal); R10.84 Generalized abdominal pain; R11.2 Nausea with vomiting, unspecified; E78.00 Pure hypercholesterolemia, unspecified; I10 Essential (primary) hypertension; J44.9 Chronic obstructive pulmonary disease, unspecified; K21.9 Gastro-esophageal reflux disease without esophagitis; E11.9 Type 2 diabetes mellitus without complications; G89.29 Other chronic pain; F31.9 Bipolar disorder, unspecified; Z90.89 Acquired absence of other organs; Z90.710 Acquired absence of both cervix and uterus; Z98.51 Tubal ligation status; Z98.890 Other specified postprocedural states; Z88.6 Allergy status to analgesic agent; Z88.1 Allergy status to other antibiotic agents; Z88.8 Allergy status to other drugs, medicaments and biological substances; Z79.899 Other long term (current) drug therapy
CPT/HCPCS: 36415; 76700; 80053; 81003; 83690; 85025; 96361; 96374; 96375; 99284; C9113; J2270; J2405; J3490; J7030

== ENCOUNTER 2021-02-16 17:14 | Emergency (ER) | payer MEDICAID ==
[~2021-02-16] VITALS: Ht 165.1 cm; Wt 115.9 kg
[~2021-02-16 17:14] MED LIST changes: +ONDA4TAB6 PO
[2021-02-16 17:43] VITALS: BP 141/92
[2021-02-16] MEDS ORDERED: DIPH25TA62 PO (19:45)
[2021-02-16] MEDS ORDERED: DEXA6TAB6 PO (19:45)
[2021-02-16] MEDS ORDERED: FAMO20TA8 PO (19:45)
[2021-02-16] MEDS ORDERED: PHEN20SP2 PO (19:52)
== END 2021-02-16 20:12 | disposition home or self-care (01) ==
LOC: ER 17:15
DX: J02.9 Acute pharyngitis, unspecified (principal); E78.00 Pure hypercholesterolemia, unspecified; I10 Essential (primary) hypertension; J44.9 Chronic obstructive pulmonary disease, unspecified; E11.9 Type 2 diabetes mellitus without complications; G89.29 Other chronic pain; M45.9 Ankylosing spondylitis of unspecified sites in spine; F31.9 Bipolar disorder, unspecified; Z88.6 Allergy status to analgesic agent; Z88.8 Allergy status to other drugs, medicaments and biological substances
CPT/HCPCS: 99283

== ENCOUNTER 2021-05-04 17:06 | Emergency (ER) | payer MEDICAID ==
[~2021-05-04] VITALS: Ht 165.1 cm; Wt 110.5 kg
[~2021-05-04 17:06] MED LIST changes: +DEXA6TAB6 PO; +DIPH25TA62 PO; +FAMO20TA8 PO; +PHEN20SP2 PO
[2021-05-04] MEDS ORDERED: morphine 4 MG/ML inj SYRINge IV PRN (17:45)
[2021-05-04] MEDS ORDERED: ondansetron/PF 4mg/2ml inj IV ONE (17:45)
[2021-05-04] MEDS ORDERED: normal saline 1000ML IV soln IVB ONE (17:45)
[2021-05-04 18:05] LABS: BASOPHILS % (AUTO) 0.5 % (0-1); EOSINOPHILS # (AUTO) 0.1 X10'3 (0-0.9); EOSINOPHILS % (AUTO) 1.8 % (0-6); HEMATOCRIT 38.4 % (35.0-45.0); HEMOGLOBIN 12.9 g/dl (12.0-16.0); LYMPHOCYTES % (AUTO) 32.9 % (21-51); MEAN CORPUSCULAR HEMOGLOBIN 27.8 PG (27.0-31.0); MEAN CORPUSCULAR HGB CONC 33.6 g/dL (33.0-36.5); MEAN CORPUSCULAR VOLUME 82.7 FL (78-98); MEAN PLATELET VOLUME 7.6 FL (7.4-10.4); MONOCYTES # (AUTO) 0.5 X10'3 (0-0.9); MONOCYTES % (AUTO) 8.1 % (2-12); NEUTROPHILS # (AUTO) 3.5 X10'3 (1.8-7.7); NEUTROPHILS % (AUTO) 56.7 % (42-75); PLATELET COUNT 203 X10'3 (140-440); RED BLOOD COUNT 4.64 X10'6 (4.20-5.60); RED CELL DISTRIBUTION WIDTH 17.6 % (11.5-14.5); WHITE BLOOD COUNT 6.2 X10'3 (4.5-11.0)
[2021-05-04 18:24] LABS: ALANINE AMINOTRANSFERASE 25 U/L (12-78); ALBUMIN 3.5 G/DL (3.4-5.0); ALBUMIN/GLOBULIN RATIO 1.1 (1.1-1.5); ALKALINE PHOSPHATASE 71 IU/L (46-116); ANION GAP 6 (8-16); ASPARTATE AMINO TRANSFERASE 14 U/L (10-37); BILIRUBIN,TOTAL 0.2 MG/DL (0.1-1.0); BLOOD UREA NITROGEN 7 MG/DL (7-18); BUN/CREATININE RATIO 10.3 (6.6-38.0); CALCIUM 8.6 MG/DL (8.5-10.1); CHLORIDE 101 MMOL/L (99-107); CREATININE 0.68 MG/DL (0.40-0.90); GLUCOSE 83 MG/DL (70-104); LIPASE 82 U/L (73-393); POTASSIUM 3.5 MMOL/L (3.5-5.1); SODIUM 139 MMOL/L (135-145); TOTAL CARBON DIOXIDE 32.1 MMOL/L (24-32); TOTAL PROTEIN 6.7 G/DL (6.4-8.2); eGFR 89 ML/MIN
[2021-05-04] MEDS ORDERED: HYDR-3965 PO (19:37)
[2021-05-04] MEDS ORDERED: ONDA4TAB6 PO (19:37)
[2021-05-04 22:32] VITALS: BP 135/87
== END 2021-05-04 22:33 | disposition home or self-care (01) ==
LOC: ER 17:08
DX: K80.20 Calculus of gallbladder without cholecystitis without obstruction (principal); K80.50 Calculus of bile duct without cholangitis or cholecystitis without obstruction; R10.11 Right upper quadrant pain; R11.0 Nausea; R19.7 Diarrhea, unspecified; E78.00 Pure hypercholesterolemia, unspecified; I10 Essential (primary) hypertension; J44.9 Chronic obstructive pulmonary disease, unspecified; E11.9 Type 2 diabetes mellitus without complications; K21.9 Gastro-esophageal reflux disease without esophagitis; G89.29 Other chronic pain; F31.9 Bipolar disorder, unspecified; F17.200 Nicotine dependence, unspecified, uncomplicated; F12.90 Cannabis use, unspecified, uncomplicated; Z90.89 Acquired absence of other organs; Z90.710 Acquired absence of both cervix and uterus; Z98.51 Tubal ligation status; Z98.890 Other specified postprocedural states; Z88.6 Allergy status to analgesic agent; Z88.1 Allergy status to other antibiotic agents; Z88.8 Allergy status to other drugs, medicaments and biological substances; Z79.899 Other long term (current) drug therapy
CPT/HCPCS: 36415; 71045; 76700; 80053; 83690; 85025; 96361; 96374; 96375; 99285; J2270; J2405; J7030

== ENCOUNTER 2021-05-16 15:37 | Emergency (ER) | payer MEDICAID ==
[~2021-05-16] VITALS: Ht 165.1 cm; Wt 110.5 kg
[~2021-05-16 15:37] MED LIST changes: +HYDR-3965 PO
[2021-05-16 17:38] LABS: CLARITY,URINE CLEAR (Clear); COLOR,URINE YELLOW (Yellow); GLUCOSE, URINE NEGATIVE (Neg); KETONES,URINE TRACE mg/dl (Neg); LEUKOCYTE ESTERASE ,URINE NEGATIVE (Neg); NITRITES, URINE NEGATIVE (Neg); OCCULT BLOOD,URINE NEGATIVE (Neg); PH,URINE 6.5 (4.8-8.0); PROTEIN,URINE NEGATIVE (Neg); UA COLLECTION TYPE CLN CATCH MIDSTREAM
[2021-05-16 17:45] LABS: BASOPHILS % (AUTO) 0.5 % (0-1); EOSINOPHILS # (AUTO) 0.2 X10'3 (0-0.9); EOSINOPHILS % (AUTO) 2.5 % (0-6); HEMATOCRIT 40.4 % (35.0-45.0); HEMOGLOBIN 13.4 g/dl (12.0-16.0); LYMPHOCYTES # (AUTO) 1.9 X10'3 (1.1-4.8); LYMPHOCYTES % (AUTO) 31.6 % (21-51); MEAN CORPUSCULAR HEMOGLOBIN 27.5 PG (27.0-31.0); MEAN CORPUSCULAR HGB CONC 33.1 g/dL (33.0-36.5); MEAN CORPUSCULAR VOLUME 83.1 FL (78-98); MEAN PLATELET VOLUME 7.8 FL (7.4-10.4); MONOCYTES # (AUTO) 0.5 X10'3 (0-0.9); MONOCYTES % (AUTO) 8.1 % (2-12); NEUTROPHILS # (AUTO) 3.5 X10'3 (1.8-7.7); NEUTROPHILS % (AUTO) 57.3 % (42-75); PLATELET COUNT 205 X10'3 (140-440); RED BLOOD COUNT 4.87 X10'6 (4.20-5.60); RED CELL DISTRIBUTION WIDTH 17.5 % (11.5-14.5); WHITE BLOOD COUNT 6.1 X10'3 (4.5-11.0)
[2021-05-16 17:52] LABS: ALANINE AMINOTRANSFERASE 19 U/L (12-78); ALBUMIN 3.5 G/DL (3.4-5.0); ALKALINE PHOSPHATASE 80 IU/L (46-116); ANION GAP 10 (8-16); ASPARTATE AMINO TRANSFERASE 11 U/L (10-37); BILIRUBIN,TOTAL 0.2 MG/DL (0.1-1.0); BLOOD UREA NITROGEN 8 MG/DL (7-18); BUN/CREATININE RATIO 11.3 (6.6-38.0); CALCIUM 8.9 MG/DL (8.5-10.1); CHLORIDE 102 MMOL/L (99-107); CREATININE 0.71 MG/DL (0.40-0.90); GLUCOSE 107 MG/DL (70-104); LIPASE 77 U/L (73-393); POTASSIUM 4.1 MMOL/L (3.5-5.1); SODIUM 140 MMOL/L (135-145); TOTAL CARBON DIOXIDE 28.5 MMOL/L (24-32); eGFR 85 ML/MIN
[2021-05-16] MEDS ORDERED: OXYC-145 PO (21:19)
[2021-05-16] MEDS ORDERED: ONDA4TAB6 PO (21:19)
[2021-05-16] MEDS ORDERED: ondansetron 4mg rapidly disintigrating tab PO ONE (21:20)
[2021-05-16] MEDS ORDERED: oxyCODONE/APAP 10/325mg tablet PO ONE (21:20)
[2021-05-16 21:35] VITALS: BP 153/95
== END 2021-05-16 21:36 | disposition home or self-care (01) ==
LOC: ER 15:39
DX: K80.50 Calculus of bile duct without cholangitis or cholecystitis without obstruction (principal); R10.84 Generalized abdominal pain; E78.00 Pure hypercholesterolemia, unspecified; I10 Essential (primary) hypertension; J44.9 Chronic obstructive pulmonary disease, unspecified; K21.9 Gastro-esophageal reflux disease without esophagitis; E11.9 Type 2 diabetes mellitus without complications; G89.29 Other chronic pain; F31.9 Bipolar disorder, unspecified; F17.200 Nicotine dependence, unspecified, uncomplicated; F12.90 Cannabis use, unspecified, uncomplicated; Z90.89 Acquired absence of other organs; Z90.710 Acquired absence of both cervix and uterus; Z98.51 Tubal ligation status; Z98.890 Other specified postprocedural states; Z88.1 Allergy status to other antibiotic agents; Z88.6 Allergy status to analgesic agent; Z88.8 Allergy status to other drugs, medicaments and biological substances; Z79.899 Other long term (current) drug therapy
CPT/HCPCS: 36415; 76700; 80053; 81003; 83690; 85025; 99284

== ENCOUNTER 2021-10-18 17:34 | Emergency (ER) | payer MEDICAID ==
[~2021-10-18] VITALS: Ht 165.1 cm; Wt 106.8 kg
[~2021-10-18 17:34] MED LIST changes: -HYDR-3965 PO; +OXYC-145 PO
[2021-10-18 18:13] LABS: BASOPHILS % (AUTO) 0.5 % (0-1); EOSINOPHILS # (AUTO) 0.1 X10'3 (0-0.9); EOSINOPHILS % (AUTO) 1.3 % (0-6); HEMATOCRIT 40.7 % (35.0-45.0); HEMOGLOBIN 13.7 g/dl (12.0-16.0); LYMPHOCYTES # (AUTO) 2.3 X10'3 (1.1-4.8); LYMPHOCYTES % (AUTO) 26.6 % (21-51); MEAN CORPUSCULAR HEMOGLOBIN 28.2 PG (27.0-31.0); MEAN CORPUSCULAR HGB CONC 33.7 g/dL (33.0-36.5); MEAN CORPUSCULAR VOLUME 83.7 FL (78-98); MEAN PLATELET VOLUME 7.7 FL (7.4-10.4); MONOCYTES # (AUTO) 0.5 X10'3 (0-0.9); MONOCYTES % (AUTO) 5.7 % (2-12); NEUTROPHILS # (AUTO) 5.7 X10'3 (1.8-7.7); NEUTROPHILS % (AUTO) 65.9 % (42-75); PLATELET COUNT 229 X10'3 (140-440); RED BLOOD COUNT 4.87 X10'6 (4.20-5.60); RED CELL DISTRIBUTION WIDTH 16.4 % (11.5-14.5); WHITE BLOOD COUNT 8.7 X10'3 (4.5-11.0)
[2021-10-18 18:24] LABS: ALANINE AMINOTRANSFERASE 15 U/L (12-78); ALBUMIN 3.7 G/DL (3.4-5.0); ALBUMIN/GLOBULIN RATIO 1.1 (1.1-1.5); ALKALINE PHOSPHATASE 79 IU/L (46-116); ANION GAP 7 (8-16); ASPARTATE AMINO TRANSFERASE 14 U/L (10-37); BILIRUBIN,TOTAL 0.3 MG/DL (0.1-1.0); BLOOD UREA NITROGEN 11 MG/DL (7-18); BUN/CREATININE RATIO 17.7 (6.6-38.0); CALCIUM 9.2 MG/DL (8.5-10.1); CHLORIDE 102 MMOL/L (99-107); CREATININE 0.62 MG/DL (0.40-0.90); GLUCOSE 84 MG/DL (70-104); LIPASE 71 U/L (73-393); POTASSIUM 3.6 MMOL/L (3.5-5.1); SODIUM 139 MMOL/L (135-145); TOTAL CARBON DIOXIDE 29.7 MMOL/L (24-32); eGFR > 90 ML/MIN
[2021-10-18] MEDS ORDERED: morphine 4 MG/ML inj SYRINge IM ONE (20:15)
[2021-10-18] MEDS ORDERED: aspirin 325mg tablet PO ONE (20:15)
[2021-10-18] MEDS ORDERED: ondansetron 4mg rapidly disintigrating tab PO ONE (20:20)
[2021-10-18 20:23] LABS: URINE HCG NEGATIVE (NEG)
[2021-10-18 20:27] LABS: CLARITY,URINE CLEAR (Clear); COLOR,URINE YELLOW (Yellow); GLUCOSE, URINE NEGATIVE (Neg); KETONES,URINE TRACE mg/dl (Neg); LEUKOCYTE ESTERASE ,URINE NEGATIVE (Neg); NITRITES, URINE NEGATIVE (Neg); OCCULT BLOOD,URINE NEGATIVE (Neg); PROTEIN,URINE NEGATIVE (Neg); UROBILINOGEN,URINE 0.2 E.U/dL (0.2-1.0)
[2021-10-18 20:35] LABS: UA COLLECTION TYPE CLN CATCH MIDSTREAM
--- NOTE | 2021-10-18 20:38 | NUR ---
Pt pink, alert, no acute/resp distress. Medicated as ordered left ventrogluteal. No s/s complication or adverse reaction.
[2021-10-18] MEDS ORDERED: HYDROcodone/acetaminophen 5mg/325mg tablet PO ONE (21:20)
[2021-10-18] MEDS ORDERED: morphine 4 MG/ML inj SYRINge IV ONE (21:20)
[2021-10-18] MEDS ORDERED: HYDR-3965 PO (21:31)
[2021-10-18] MEDS ORDERED: ONDA8TAB13 PO (21:31)
[2021-10-18 22:20] VITALS: BP 135/68
== END 2021-10-18 22:21 | disposition home or self-care (01) ==
LOC: ER 17:34
DX: R10.11 Right upper quadrant pain (principal); R19.7 Diarrhea, unspecified; R11.0 Nausea; E78.00 Pure hypercholesterolemia, unspecified; I10 Essential (primary) hypertension; J44.9 Chronic obstructive pulmonary disease, unspecified; E11.9 Type 2 diabetes mellitus without complications; G89.29 Other chronic pain; M54.9 Dorsalgia, unspecified; F31.9 Bipolar disorder, unspecified; F12.10 Cannabis abuse, uncomplicated; Z88.6 Allergy status to analgesic agent; Z88.1 Allergy status to other antibiotic agents; Z88.8 Allergy status to other drugs, medicaments and biological substances; Z79.899 Other long term (current) drug therapy
CPT/HCPCS: 36415; 76700; 80053; 81003; 81025; 83690; 84484; 85025; 96372; 96374; 99285; J2270; 93005

== ENCOUNTER 2021-10-19 14:29 | Emergency (ER) | payer MEDICAID ==
[~2021-10-19] VITALS: Ht 165.1 cm; Wt 125.0 kg
[~2021-10-19 14:29] MED LIST changes: +HYDR-3965 PO; +ONDA8TAB13 PO
[2021-10-19] MEDS ORDERED: normal saline 1000ML IV soln IVB ONE (15:45)
[2021-10-19] MEDS ORDERED: morphine 4 MG/ML inj SYRINge IV ONE ×2 (15:45→18:15)
[2021-10-19] MEDS ORDERED: HYDROcodone/acetaminophen 5mg/325mg tablet PO ONE (15:45)
[2021-10-19] MEDS ORDERED: acetaminophen 325mg tablet PO ONE (15:45)
[2021-10-19] MEDS ORDERED: ondansetron/PF 4mg/2ml inj IV ONE (15:45)
[2021-10-19] MEDS ORDERED: proCHLORperazine 10 MG/2 ml inj IV ONE (15:45)
[2021-10-19] MEDS ORDERED: iohexol 300mg/ml 100ml inj. ONE (15:53)
[2021-10-19] MEDS: MESSAGE TO NURSING PO NR ×2 (16:10→19:56)
[2021-10-19 16:30] LABS: BASOPHILS % (AUTO) 0.4 % (0-1); EOSINOPHILS % (AUTO) 0.5 % (0-6); HEMOGLOBIN 14.4 g/dl (12.0-16.0); LYMPHOCYTES # (AUTO) 1.7 X10'3 (1.1-4.8); LYMPHOCYTES % (AUTO) 18.1 % (21-51); MEAN CORPUSCULAR HEMOGLOBIN 28.1 PG (27.0-31.0); MEAN CORPUSCULAR HGB CONC 33.4 g/dL (33.0-36.5); MEAN CORPUSCULAR VOLUME 84.1 FL (78-98); MONOCYTES # (AUTO) 0.5 X10'3 (0-0.9); MONOCYTES % (AUTO) 5.7 % (2-12); NEUTROPHILS # (AUTO) 6.9 X10'3 (1.8-7.7); NEUTROPHILS % (AUTO) 75.3 % (42-75); PLATELET COUNT 214 X10'3 (140-440); RED BLOOD COUNT 5.11 X10'6 (4.20-5.60); RED CELL DISTRIBUTION WIDTH 16.4 % (11.5-14.5); WHITE BLOOD COUNT 9.1 X10'3 (4.5-11.0)
[2021-10-19 16:42] LABS: ALANINE AMINOTRANSFERASE 16 U/L (12-78); ALBUMIN 3.6 G/DL (3.4-5.0); ALBUMIN/GLOBULIN RATIO 1.1 (1.1-1.5); ALKALINE PHOSPHATASE 73 IU/L (46-116); ANION GAP 8 (8-16); ASPARTATE AMINO TRANSFERASE 11 U/L (10-37); BILIRUBIN,TOTAL 0.4 MG/DL (0.1-1.0); BLOOD UREA NITROGEN 7 MG/DL (7-18); BUN/CREATININE RATIO 13.2 (6.6-38.0); CALCIUM 8.7 MG/DL (8.5-10.1); CHLORIDE 98 MMOL/L (99-107); CREATININE 0.53 MG/DL (0.40-0.90); GLUCOSE 85 MG/DL (70-104); POTASSIUM 3.8 MMOL/L (3.5-5.1); SODIUM 137 MMOL/L (135-145); TOTAL CARBON DIOXIDE 31.1 MMOL/L (24-32); TOTAL PROTEIN 6.9 G/DL (6.4-8.2); eGFR > 90 ML/MIN
[2021-10-19 16:46] LABS: LIPASE 61 U/L (73-393)
[2021-10-19] MEDS ORDERED: metoclopramide 5 mg/ml inj IV ONE (18:15)
[2021-10-19 19:26] VITALS: BP 123/75
--- NOTE | 2021-10-19 19:44 | NUR ---
Pt resting comfortably in room with visitor. Pt states she feels "much better" after medications. MD spoke with pt about discharge.
[2021-10-19] MEDS ORDERED: HYDROcodone/acetaminophen 10/325mg tab PO ONE (19:45)
[2021-10-19] MEDS ORDERED: metoclopramide 10mg tablet PO ONE (19:45)
== END 2021-10-19 19:58 | disposition home or self-care (01) ==
LOC: ER 14:30
DX: R10.9 Unspecified abdominal pain (principal); E78.00 Pure hypercholesterolemia, unspecified; I10 Essential (primary) hypertension; J44.9 Chronic obstructive pulmonary disease, unspecified; E11.9 Type 2 diabetes mellitus without complications; K21.9 Gastro-esophageal reflux disease without esophagitis; G89.29 Other chronic pain; M54.9 Dorsalgia, unspecified; F31.9 Bipolar disorder, unspecified; F12.10 Cannabis abuse, uncomplicated; Z88.6 Allergy status to analgesic agent; Z88.1 Allergy status to other antibiotic agents; Z79.899 Other long term (current) drug therapy; Z88.8 Allergy status to other drugs, medicaments and biological substances
CPT/HCPCS: 36415; 74177; 80053; 83690; 84484; 85025; 96361; 96374; 96375; 96376; 99285; J0780; J2270; J2405; J2765; J7030; Q9967

== ENCOUNTER 2022-03-03 17:46 | Emergency (ER) | payer MEDICAID ==
[~2022-03-03] VITALS: Ht 165.1 cm; Wt 104.5 kg
[~2022-03-03 17:46] MED LIST changes: -HYDR-3965 PO
[2022-03-03 18:24] LABS: BASOPHILS % (AUTO) 0.5 % (0-1); EOSINOPHILS # (AUTO) 0.1 X10'3 (0-0.9); EOSINOPHILS % (AUTO) 1.5 % (0-6); HEMATOCRIT 42.7 % (35.0-45.0); HEMOGLOBIN 14.7 g/dl (12.0-16.0); LYMPHOCYTES % (AUTO) 34.3 % (21-51); MEAN CORPUSCULAR HEMOGLOBIN 28.9 PG (27.0-31.0); MEAN CORPUSCULAR HGB CONC 34.4 g/dL (33.0-36.5); MEAN CORPUSCULAR VOLUME 84.1 FL (78-98); MEAN PLATELET VOLUME 7.4 FL (7.4-10.4); MONOCYTES # (AUTO) 0.5 X10'3 (0-0.9); MONOCYTES % (AUTO) 5.6 % (2-12); NEUTROPHILS % (AUTO) 58.1 % (42-75); PLATELET COUNT 179 X10'3 (140-440); RED BLOOD COUNT 5.08 X10'6 (4.20-5.60); RED CELL DISTRIBUTION WIDTH 16.4 % (11.5-14.5); WHITE BLOOD COUNT 8.6 X10'3 (4.5-11.0)
[2022-03-03 18:38] LABS: ALANINE AMINOTRANSFERASE 18 U/L (12-78); ALBUMIN 4.1 G/DL (3.4-5.0); ALBUMIN/GLOBULIN RATIO 1.2 (1.1-1.5); ALKALINE PHOSPHATASE 74 IU/L (46-116); ANION GAP 10 (8-16); ASPARTATE AMINO TRANSFERASE 8 U/L (10-37); BILIRUBIN,TOTAL 0.5 MG/DL (0.1-1.0); BLOOD UREA NITROGEN 9 MG/DL (7-18); CALCIUM 9.2 MG/DL (8.5-10.1); CHLORIDE 98 MMOL/L (99-107); CREATININE 0.69 MG/DL (0.40-0.90); GLUCOSE 94 MG/DL (70-104); LIPASE 60 U/L (73-393); POTASSIUM 4.1 MMOL/L (3.5-5.1); SODIUM 135 MMOL/L (135-145); TOTAL CARBON DIOXIDE 27.2 MMOL/L (24-32); TOTAL PROTEIN 7.5 G/DL (6.4-8.2); eGFR 87 ML/MIN
[2022-03-03] MEDS ORDERED: ondansetron/PF 4mg/2ml inj IV ONE (22:20)
[2022-03-03] MEDS ORDERED: normal saline 1000ML IV soln IVB ONE (22:20)
[2022-03-03] MEDS ORDERED: morphine 4 MG/ML inj SYRINge IV PRN (22:20)
[2022-03-03] MEDS ORDERED: HYDR-3972 PO (23:48)
[2022-03-03] MEDS ORDERED: ONDA4TAB12 PO (23:48)
[2022-03-04 01:37] VITALS: BP 127/80
== END 2022-03-04 01:02 | disposition home or self-care (01) ==
LOC: ER 17:47
DX: R10.9 Unspecified abdominal pain (principal); R50.9 Fever, unspecified; R11.0 Nausea; I10 Essential (primary) hypertension; E78.00 Pure hypercholesterolemia, unspecified; J44.9 Chronic obstructive pulmonary disease, unspecified; E03.9 Hypothyroidism, unspecified; K21.9 Gastro-esophageal reflux disease without esophagitis; G89.29 Other chronic pain; F12.10 Cannabis abuse, uncomplicated; M54.9 Dorsalgia, unspecified; F31.9 Bipolar disorder, unspecified; Z90.49 Acquired absence of other specified parts of digestive tract; Z98.890 Other specified postprocedural states
CPT/HCPCS: 36415; 80053; 83690; 85025; 96361; 96374; 96375; 99284; J2270; J2405; J7030

== ENCOUNTER 2022-03-25 14:45 | Emergency (ER) | payer MEDICAID ==
[~2022-03-25] VITALS: Ht 165.1 cm; Wt 90.0 kg
[~2022-03-25 14:45] MED LIST changes: +HYDR-3972 PO; +ONDA4TAB12 PO
[2022-03-25 15:25] LABS: CLARITY,URINE CLEAR (Clear); COLOR,URINE YELLOW (Yellow); GLUCOSE, URINE NEGATIVE (Neg); KETONES,URINE TRACE mg/dl (Neg); LEUKOCYTE ESTERASE ,URINE NEGATIVE (Neg); NITRITES, URINE NEGATIVE (Neg); OCCULT BLOOD,URINE NEGATIVE (Neg); PROTEIN,URINE NEGATIVE (Neg)
[2022-03-25 15:27] LABS: URINE HCG NEGATIVE (NEG)
[2022-03-25 15:29] LABS: UA COLLECTION TYPE CLN CATCH MIDSTREAM
[2022-03-25 15:32] LABS: BASOPHILS % (AUTO) 0.6 % (0-1); EOSINOPHILS # (AUTO) 0.4 X10'3 (0-0.9); EOSINOPHILS % (AUTO) 5.1 % (0-6); HEMATOCRIT 41.2 % (35.0-45.0); HEMOGLOBIN 14.1 g/dl (12.0-16.0); LYMPHOCYTES # (AUTO) 2.9 X10'3 (1.1-4.8); LYMPHOCYTES % (AUTO) 35.4 % (21-51); MEAN CORPUSCULAR HEMOGLOBIN 29.6 PG (27.0-31.0); MEAN CORPUSCULAR HGB CONC 34.3 g/dL (33.0-36.5); MEAN CORPUSCULAR VOLUME 86.2 FL (78-98); MEAN PLATELET VOLUME 7.5 FL (7.4-10.4); MONOCYTES # (AUTO) 0.6 X10'3 (0-0.9); MONOCYTES % (AUTO) 7.2 % (2-12); NEUTROPHILS # (AUTO) 4.2 X10'3 (1.8-7.7); NEUTROPHILS % (AUTO) 51.7 % (42-75); PLATELET COUNT 189 X10'3 (140-440); RED BLOOD COUNT 4.78 X10'6 (4.20-5.60); RED CELL DISTRIBUTION WIDTH 15.8 % (11.5-14.5); WHITE BLOOD COUNT 8.2 X10'3 (4.5-11.0)
[2022-03-25 15:39] LABS: ALANINE AMINOTRANSFERASE 15 U/L (12-78); ALBUMIN/GLOBULIN RATIO 1.3 (1.1-1.5); ALKALINE PHOSPHATASE 75 IU/L (46-116); ANION GAP 7 (8-16); ASPARTATE AMINO TRANSFERASE 10 U/L (10-37); BILIRUBIN,TOTAL 0.4 MG/DL (0.1-1.0); BLOOD UREA NITROGEN 10 MG/DL (7-18); BUN/CREATININE RATIO 14.7 (6.6-38.0); CALCIUM 9.2 MG/DL (8.5-10.1); CHLORIDE 97 MMOL/L (99-107); CREATININE 0.68 MG/DL (0.40-0.90); GLUCOSE 77 MG/DL (70-104); LIPASE 86 U/L (73-393); SODIUM 134 MMOL/L (135-145); TOTAL CARBON DIOXIDE 29.6 MMOL/L (24-32); TOTAL PROTEIN 7.2 G/DL (6.4-8.2); eGFR 89 ML/MIN
[2022-03-25] MEDS ORDERED: morphine 4 MG/ML inj SYRINge IM ONE (16:45)
[2022-03-25] MEDS ORDERED: morphine 4 MG/ML inj SYRINge IV ONE (16:45)
[2022-03-25] MEDS ORDERED: ondansetron 4mg rapidly disintigrating tab PO ONE (16:45)
[2022-03-25] MEDS ORDERED: normal saline 1000ml 1,000 ML IVB ONE (16:45)
[2022-03-25 18:00] VITALS: BP 130/97
[2022-03-25] MEDS ORDERED: HYDR-3972 PO (18:15)
[2022-03-25] MEDS ORDERED: ONDA8TAB13 PO (18:15)
[2022-03-25 19:01] LABS: BASOPHILS % (AUTO) 0.4 % (0-1); EOSINOPHILS # (AUTO) 0.4 X10'3 (0-0.9); EOSINOPHILS % (AUTO) 5.3 % (0-6); HEMATOCRIT 41.1 % (35.0-45.0); LYMPHOCYTES # (AUTO) 2.7 X10'3 (1.1-4.8); LYMPHOCYTES % (AUTO) 34.4 % (21-51); MEAN CORPUSCULAR HEMOGLOBIN 29.4 PG (27.0-31.0); MEAN CORPUSCULAR VOLUME 86.5 FL (78-98); MEAN PLATELET VOLUME 8.6 FL (7.4-10.4); MONOCYTES # (AUTO) 0.5 X10'3 (0-0.9); MONOCYTES % (AUTO) 6.6 % (2-12); NEUTROPHILS # (AUTO) 4.1 X10'3 (1.8-7.7); NEUTROPHILS % (AUTO) 53.3 % (42-75); PLATELET COUNT 164 X10'3 (140-440); RED BLOOD COUNT 4.75 X10'6 (4.20-5.60); RED CELL DISTRIBUTION WIDTH 16.4 % (11.5-14.5); WHITE BLOOD COUNT 7.8 X10'3 (4.5-11.0)
== END 2022-03-25 18:40 | disposition home or self-care (01) ==
LOC: ER 14:45
DX: G89.29 Other chronic pain (principal); R10.9 Unspecified abdominal pain; R11.2 Nausea with vomiting, unspecified; I11.0 Hypertensive heart disease with heart failure; J44.9 Chronic obstructive pulmonary disease, unspecified; E11.9 Type 2 diabetes mellitus without complications; K21.9 Gastro-esophageal reflux disease without esophagitis; E03.9 Hypothyroidism, unspecified; M54.9 Dorsalgia, unspecified; F31.9 Bipolar disorder, unspecified; Z90.49 Acquired absence of other specified parts of digestive tract; Z98.890 Other specified postprocedural states; F12.10 Cannabis abuse, uncomplicated; Z88.6 Allergy status to analgesic agent; Z88.1 Allergy status to other antibiotic agents; Z88.8 Allergy status to other drugs, medicaments and biological substances; Z79.899 Other long term (current) drug therapy; Z79.1 Long term (current) use of non-steroidal anti-inflammatories (NSAID); Z79.2 Long term (current) use of antibiotics
CPT/HCPCS: 36415; 76700; 80053; 81003; 81025; 83690; 85025; 96374; 99284; J2270; J7030

== ENCOUNTER 2022-07-26 11:08 | Emergency (ER) | payer MEDICAID ==
[~2022-07-26] VITALS: Ht 165.1 cm; Wt 100.0 kg
[~2022-07-26 11:08] MED LIST changes: +BUPR-344 PO; +BUSP5TAB3 PO; -DEXA6TAB6 PO; -DIPH25TA62 PO; -DIVA500T9 PO; -FAMO20TA8 PO; +LORA-269 PO; +MIRA50TA PO; +ROSU20TA2 PO; +TRAZ-256 PO; +[UNRECOGNIZED DRUG - CODE] PO
[2022-07-26 12:08] LABS: BASOPHILS % (AUTO) 0.5 % (0-1); EOSINOPHILS # (AUTO) 0.2 X10'3 (0-0.9); EOSINOPHILS % (AUTO) 3.6 % (0-6); HEMATOCRIT 40.6 % (35.0-45.0); HEMOGLOBIN 13.5 g/dl (12.0-16.0); LYMPHOCYTES # (AUTO) 2.1 X10'3 (1.1-4.8); LYMPHOCYTES % (AUTO) 38.6 % (21-51); MEAN CORPUSCULAR HEMOGLOBIN 30.5 PG (27.0-31.0); MEAN CORPUSCULAR HGB CONC 33.3 g/dL (33.0-36.5); MEAN CORPUSCULAR VOLUME 91.5 FL (78-98); MEAN PLATELET VOLUME 7.5 FL (7.4-10.4); MONOCYTES # (AUTO) 0.4 X10'3 (0-0.9); MONOCYTES % (AUTO) 7.8 % (2-12); NEUTROPHILS # (AUTO) 2.7 X10'3 (1.8-7.7); NEUTROPHILS % (AUTO) 49.5 % (42-75); PLATELET COUNT 159 X10'3 (140-440); RED BLOOD COUNT 4.43 X10'6 (4.20-5.60); RED CELL DISTRIBUTION WIDTH 13.7 % (11.5-14.5); WHITE BLOOD COUNT 5.5 X10'3 (4.5-11.0)
[2022-07-26 12:20] LABS: ALANINE AMINOTRANSFERASE 9 U/L (12-78); ALBUMIN 3.7 G/DL (3.4-5.0); ALBUMIN/GLOBULIN RATIO 1.3 (1.1-1.5); ALKALINE PHOSPHATASE 69 IU/L (46-116); ANION GAP 5 (8-16); ASPARTATE AMINO TRANSFERASE 19 U/L (10-37); BILIRUBIN,TOTAL 0.3 MG/DL (0.1-1.0); BLOOD UREA NITROGEN 6 MG/DL (7-18); BUN/CREATININE RATIO 9.4 (6.6-38.0); CALCIUM 8.8 MG/DL (8.5-10.1); CHLORIDE 99 MMOL/L (99-107); CREATININE 0.64 MG/DL (0.40-0.90); GLUCOSE 92 MG/DL (70-104); LIPASE 68 U/L (73-393); POTASSIUM 4.3 MMOL/L (3.5-5.1); SODIUM 136 MMOL/L (135-145); TOTAL CARBON DIOXIDE 31.7 MMOL/L (24-32); TOTAL PROTEIN 6.6 G/DL (6.4-8.2); eGFR > 90 ML/MIN
[2022-07-26 12:33] LABS: URINE HCG NEGATIVE (NEG)
[2022-07-26 12:37] LABS: CLARITY,URINE SLIGHTLY CLOUDY (Clear); COLOR,URINE STRAW (Yellow); GLUCOSE, URINE NEGATIVE (Neg); KETONES,URINE NEGATIVE (Neg); LEUKOCYTE ESTERASE ,URINE NEGATIVE (Neg); NITRITES, URINE NEGATIVE (Neg); OCCULT BLOOD,URINE NEGATIVE (Neg); PROTEIN,URINE NEGATIVE (Neg); UROBILINOGEN,URINE 0.2 E.U/dL (0.2-1.0)
[2022-07-26 12:39] LABS: UA COLLECTION TYPE CLN CATCH MIDSTREAM
[2022-07-26] MEDS ORDERED: orphenadrine citrate 60mg/2ml inj. IM ONE (12:40)
[2022-07-26] MEDS ORDERED: ondansetron 4mg rapidly disintigrating tab PO ONE (12:40)
[2022-07-26] MEDS ORDERED: HYDROcodone/acetaminophen 5mg/325mg tablet PO ONE (12:40)
[2022-07-26] MEDS ORDERED: HYDR-3965 PO (13:03)
[2022-07-26] MEDS ORDERED: CYCL-1 PO (13:03)
[2022-07-26] MEDS ORDERED: ONDA8TAB13 PO (13:03)
[2022-07-26 13:06] LABS: BACTERIA,URINE FEW /HPF (Neg); RBC,URINE 0-2 /HPF (0-2); SQUAMOUS EPITHELIAL CELL,UR FEW /LPF (FEW); WBC,URINE 0-4 /HPF (0-4)
[2022-07-26 13:23] VITALS: BP 155/90
== END 2022-07-26 13:26 | disposition home or self-care (01) ==
LOC: ER 11:09
DX: M54.50 Low back pain, unspecified (principal); I10 Essential (primary) hypertension; E78.00 Pure hypercholesterolemia, unspecified; J44.9 Chronic obstructive pulmonary disease, unspecified; K21.9 Gastro-esophageal reflux disease without esophagitis; E11.9 Type 2 diabetes mellitus without complications; E03.9 Hypothyroidism, unspecified; G89.29 Other chronic pain; M79.7 Fibromyalgia; F31.9 Bipolar disorder, unspecified; F12.90 Cannabis use, unspecified, uncomplicated; Z87.442 Personal history of urinary calculi; Z90.710 Acquired absence of both cervix and uterus; Z98.51 Tubal ligation status; Z98.890 Other specified postprocedural states; Z88.1 Allergy status to other antibiotic agents; Z88.6 Allergy status to analgesic agent; Z79.899 Other long term (current) drug therapy
CPT/HCPCS: 36415; 80053; 81001; 81025; 83690; 85025; 96372; 99283; J2360

== ENCOUNTER 2022-12-14 15:58 | Emergency (ER) | payer MEDICAID ==
[~2022-12-14] VITALS: Ht 165.1 cm; Wt 103.6 kg
[~2022-12-14 15:58] MED LIST changes: +CYCL-1 PO
[2022-12-14 16:31] LABS: BASOPHILS % (AUTO) 0.5 % (0-1); EOSINOPHILS # (AUTO) 0.3 X10'3 (0-0.9); EOSINOPHILS % (AUTO) 4.8 % (0-6); HEMATOCRIT 43.5 % (35.0-45.0); HEMOGLOBIN 14.4 g/dl (12.0-16.0); LYMPHOCYTES # (AUTO) 2.2 X10'3 (1.1-4.8); LYMPHOCYTES % (AUTO) 33.6 % (21-51); MEAN CORPUSCULAR HEMOGLOBIN 29.7 PG (27.0-31.0); MEAN CORPUSCULAR HGB CONC 33.1 g/dL (33.0-36.5); MEAN CORPUSCULAR VOLUME 89.8 FL (78-98); MEAN PLATELET VOLUME 7.5 FL (7.4-10.4); MONOCYTES # (AUTO) 0.5 X10'3 (0-0.9); MONOCYTES % (AUTO) 7.7 % (2-12); NEUTROPHILS # (AUTO) 3.5 X10'3 (1.8-7.7); NEUTROPHILS % (AUTO) 53.4 % (42-75); PLATELET COUNT 168 X10'3 (140-440); RED BLOOD COUNT 4.84 X10'6 (4.20-5.60); WHITE BLOOD COUNT 6.5 X10'3 (4.5-11.0)
[2022-12-14 16:40] LABS: ALANINE AMINOTRANSFERASE 15 U/L (12-78); ALBUMIN 3.9 G/DL (3.4-5.0); ALBUMIN/GLOBULIN RATIO 1.3 (1.1-1.5); ALKALINE PHOSPHATASE 82 IU/L (46-116); ANION GAP 9 (8-16); ASPARTATE AMINO TRANSFERASE 8 U/L (10-37); BILIRUBIN,TOTAL 0.2 MG/DL (0.1-1.0); BLOOD UREA NITROGEN 5 MG/DL (7-18); BUN/CREATININE RATIO 7.1 (10.0-20.0); CALCIUM 9.5 MG/DL (8.5-10.1); CHLORIDE 102 MMOL/L (99-107); GLUCOSE 121 MG/DL (70-104); SODIUM 138 MMOL/L (135-145); TOTAL CARBON DIOXIDE 27.2 MMOL/L (24-32); TOTAL PROTEIN 6.9 G/DL (6.4-8.2); eGFR 86 ML/MIN
[2022-12-14] MEDS ORDERED: meclizine 12.5mg tablet PO ONE (17:25)
[2022-12-14] MEDS ORDERED: diazepam 5mg tablet PO ONE (17:25)
[2022-12-14] MEDS ORDERED: ondansetron 4mg rapidly disintigrating tab PO ONE (17:25)
[2022-12-14] MEDS ORDERED: normal saline 1000ml 1,000 ML IV ONE (17:25)
--- NOTE | 2022-12-14 17:41 | NUR ---
Pt to CT scan.
--- NOTE | 2022-12-14 18:20 | NUR ---
2 hour troponin not indicated per Dr. Pace.
[2022-12-14 18:32] VITALS: BP 111/76
[2022-12-14] MEDS ORDERED: acetaminophen 325mg tablet PO ONE ×2 (19:00)
[2022-12-14] MEDS ORDERED: ONDA4TAB12 PO (19:27)
[2022-12-14] MEDS ORDERED: MECL-159 PO (19:27)
[2022-12-14] MEDS ORDERED: DIAZ5TAB22 PO (19:27)
== END 2022-12-14 19:49 | disposition home or self-care (01) ==
LOC: ER 15:58
DX: R42 Dizziness and giddiness (principal); E86.0 Dehydration; I11.9 Hypertensive heart disease without heart failure; E78.00 Pure hypercholesterolemia, unspecified; J44.9 Chronic obstructive pulmonary disease, unspecified; E03.9 Hypothyroidism, unspecified; G89.29 Other chronic pain; M54.9 Dorsalgia, unspecified; F31.9 Bipolar disorder, unspecified; Z88.6 Allergy status to analgesic agent; Z88.8 Allergy status to other drugs, medicaments and biological substances; Z79.899 Other long term (current) drug therapy
CPT/HCPCS: 36415; 70450; 71045; 80053; 83880; 84484; 85025; 93005; 96360; 99285; J7030; J8597

== ENCOUNTER 2023-01-05 19:23 | Emergency (ER) | payer MEDICAID ==
[~2023-01-05] VITALS: Ht 165.1 cm; Wt 104.1 kg
[~2023-01-05 19:23] MED LIST changes: +DIAZ5TAB22 PO; +MECL-159 PO
[2023-01-05 19:54] VITALS: BP 137/80
[2023-01-05] MEDS ORDERED: acetaminophen 325mg tablet PO ONE (23:10)
== END 2023-01-05 23:21 | disposition home or self-care (01) ==
LOC: ER 19:23
DX: M25.562 Pain in left knee (principal); E78.00 Pure hypercholesterolemia, unspecified; I10 Essential (primary) hypertension; J44.9 Chronic obstructive pulmonary disease, unspecified; E11.9 Type 2 diabetes mellitus without complications; E03.9 Hypothyroidism, unspecified; G89.29 Other chronic pain; M79.7 Fibromyalgia; F31.9 Bipolar disorder, unspecified; F12.90 Cannabis use, unspecified, uncomplicated; Z90.49 Acquired absence of other specified parts of digestive tract; Z90.710 Acquired absence of both cervix and uterus; Z98.51 Tubal ligation status; Z88.8 Allergy status to other drugs, medicaments and biological substances; Z88.1 Allergy status to other antibiotic agents; Z88.6 Allergy status to analgesic agent; Z79.899 Other long term (current) drug therapy; Z79.84 Long term (current) use of oral hypoglycemic drugs; W18.39XA Other fall on same level, initial encounter
CPT/HCPCS: 73564; 99284

== ENCOUNTER 2023-06-27 13:02 | Emergency (ER) | payer MEDICAID ==
[~2023-06-27] VITALS: Ht 165.1 cm; Wt 108.2 kg
[~2023-06-27 13:02] MED LIST changes: -DIAZ5TAB22 PO; -MECL-159 PO; +MECL-302 PO
[2023-06-27] MEDS ORDERED: LIDOcaine 5% patch TP STA (14:01)
[2023-06-27] MEDS ORDERED: diazepam 5mg tablet PO ONE (14:05)
[2023-06-27] MEDS ORDERED: acetaminophen 325mg tablet PO ONE (14:05)
[2023-06-27 16:50] VITALS: BP 154/88; PULSE 81; RESP 16; TEMP 98.1; O2SAT 97
== END 2023-06-27 17:40 | disposition home or self-care (01) ==
LOC: ER 13:04
DX: M54.30 Sciatica, unspecified side (principal); E78.00 Pure hypercholesterolemia, unspecified; I10 Essential (primary) hypertension; K21.9 Gastro-esophageal reflux disease without esophagitis; J45.909 Unspecified asthma, uncomplicated; F31.9 Bipolar disorder, unspecified; G89.29 Other chronic pain; M54.9 Dorsalgia, unspecified; Z90.49 Acquired absence of other specified parts of digestive tract
CPT/HCPCS: 99284

== ENCOUNTER → 2023-10-23 | Emergency (ER) | payer MEDICAID ==
[~2023-10-23] VITALS: Ht 165.1 cm; Wt 111.4 kg
[~2023-10-23] MED LIST changes: -ATOR20TA66 PO; -CLON0.1T2 PO; +CLON0.2T PO; -CYCL-1 PO; -HYDR-3972 PO; +MIRA25TA PO; -MIRA50TA PO; +NICO-630 TOP; +NICO-669 SL; +NORT75CA PO; -OMEP20CA4 PO; -ONDA4TAB12 PO; -ONDA4TAB6 PO; -ONDA8TAB13 PO; -OXYC-145 PO; -PANT20TA18 PO; +PANT40TA54 PO; -PHEN20SP2 PO
[2023-10-23 19:38] VITALS: BP 143/89; PULSE 84; RESP 17; TEMP 98.1; O2SAT 94
== END | disposition left against medical advice (07) ==
LOC: ER 19:20
DX: M25.472 Effusion, left ankle (principal); M25.471 Effusion, right ankle; M79.89 Other specified soft tissue disorders; Z53.21 Procedure and treatment not carried out due to patient leaving prior to being seen by health care provider
CPT/HCPCS: 71045; 99281

== ENCOUNTER 2024-02-18 16:06 | Emergency (ER) | payer MEDICAID ==
[~2024-02-18] VITALS: Ht 165.1 cm; Wt 109.1 kg
[2024-02-18 16:59] LABS: BASOPHILS % (AUTO) 0.4 % (0-1); EOSINOPHILS # (AUTO) 0.1 X10'3 (0-0.9); EOSINOPHILS % (AUTO) 1.9 % (0-6); HEMATOCRIT 36.6 % (35.0-45.0); HEMOGLOBIN 12.3 g/dl (12.0-16.0); LYMPHOCYTES # (AUTO) 1.7 X10'3 (1.1-4.8); LYMPHOCYTES % (AUTO) 30.8 % (21-51); MEAN CORPUSCULAR HEMOGLOBIN 29.5 PG (27.0-31.0); MEAN CORPUSCULAR HGB CONC 33.6 g/dL (33.0-36.5); MEAN CORPUSCULAR VOLUME 87.7 FL (78-98); MEAN PLATELET VOLUME 7.6 FL (7.4-10.4); MONOCYTES # (AUTO) 0.5 X10'3 (0-0.9); MONOCYTES % (AUTO) 9.5 % (2-12); NEUTROPHILS # (AUTO) 3.2 X10'3 (1.8-7.7); NEUTROPHILS % (AUTO) 57.4 % (42-75); PLATELET COUNT 173 X10'3 (140-440); RED BLOOD COUNT 4.17 X10'6 (4.20-5.60); WHITE BLOOD COUNT 5.6 X10'3 (4.5-11.0)
[2024-02-18 17:04] LABS: BILIRUBIN,URINE NEGATIVE (Neg); CLARITY,URINE CLEAR (Clear); COLOR,URINE YELLOW (Yellow); GLUCOSE, URINE NEGATIVE (Neg); KETONES,URINE NEGATIVE (Neg); LEUKOCYTE ESTERASE ,URINE NEGATIVE (Neg); NITRITES, URINE NEGATIVE (Neg); OCCULT BLOOD,URINE NEGATIVE (Neg); PROTEIN,URINE NEGATIVE (Neg); UA COLLECTION TYPE FOLEY CATH; UROBILINOGEN,URINE 0.2 E.U/dL (0.2-1.0)
[2024-02-18 17:05] LABS: URINE HCG NEGATIVE (NEG)
[2024-02-18 17:35] LABS: ALANINE AMINOTRANSFERASE 23 U/L (12-78); ALBUMIN 3.3 G/DL (3.4-5.0); ALBUMIN/GLOBULIN RATIO 1.1 (1.1-1.5); ALKALINE PHOSPHATASE 72 IU/L (46-116); ANION GAP 3 (8-16); ASPARTATE AMINO TRANSFERASE 15 U/L (10-37); BILIRUBIN,TOTAL 0.2 MG/DL (0.1-1.0); BLOOD UREA NITROGEN 5 MG/DL (7-18); BUN/CREATININE RATIO 7.1 (10.0-20.0); CALCIUM 8.9 MG/DL (8.5-10.1); CHLORIDE 103 MMOL/L (99-107); GLUCOSE 80 MG/DL (70-104); LIPASE 29 U/L (16-77); POTASSIUM 4.2 MMOL/L (3.5-5.1); SODIUM 138 MMOL/L (135-145); TOTAL CARBON DIOXIDE 32.1 MMOL/L (24-32); TOTAL PROTEIN 6.4 G/DL (6.4-8.2); eCRCL 77 ML/MIN; eGFR 85 ML/MIN
[2024-02-18] MEDS ORDERED: DIPH-186 PO (17:52)
[2024-02-18] MEDS: diphenoxylate/atropine tablet (Lomotil) PO ONE (17:53)
[2024-02-18 17:58] VITALS: BP 152/79; PULSE 72; RESP 16; TEMP 96.9; O2SAT 94
== END 2024-02-18 18:03 | disposition home or self-care (01) ==
LOC: ER 16:06
DX: R10.30 Lower abdominal pain, unspecified (principal); E78.00 Pure hypercholesterolemia, unspecified; I10 Essential (primary) hypertension; J44.9 Chronic obstructive pulmonary disease, unspecified; K21.9 Gastro-esophageal reflux disease without esophagitis; E11.9 Type 2 diabetes mellitus without complications; E03.9 Hypothyroidism, unspecified; M54.9 Dorsalgia, unspecified; G89.29 Other chronic pain; F32.A Depression, unspecified; F12.90 Cannabis use, unspecified, uncomplicated; Z87.19 Personal history of other diseases of the digestive system; Z88.6 Allergy status to analgesic agent; Z88.8 Allergy status to other drugs, medicaments and biological substances; Z88.1 Allergy status to other antibiotic agents; Z79.899 Other long term (current) drug therapy; Z79.2 Long term (current) use of antibiotics; Z79.84 Long term (current) use of oral hypoglycemic drugs; Z98.890 Other specified postprocedural states; Z90.710 Acquired absence of both cervix and uterus; Z98.51 Tubal ligation status
CPT/HCPCS: 36415; 80053; 81003; 81025; 83690; 85025; 99283

== ENCOUNTER 2024-04-28 16:38 | Emergency (ER) | payer MEDICAID ==
[~2024-04-28] VITALS: Ht 165.1 cm; Wt 107.8 kg
[~2024-04-28 16:38] MED LIST changes: +DIPH-186 PO
[2024-04-28 16:54] VITALS: PULSE 94
[2024-04-28] MEDS: ampicillin/sulbac 3gm/NS 100ml 100 ML IV ONE ×2 (18:10→18:58)
[2024-04-28] MEDS ORDERED: AMOX-580 PO (18:12)
[2024-04-28] MEDS ORDERED: HYDR-3965 PO (18:12)
[2024-04-28] MEDS: ondansetron 4mg rapidly disintigrating tab PO ONE (18:15)
[2024-04-28] MEDS: HYDROcodone/acetaminophen 5mg/325mg tablet PO ONE (18:17)
[2024-04-28 19:41] VITALS: BP 120/78; RESP 16; TEMP 98.1; O2SAT 100
== END 2024-04-28 19:50 | disposition home or self-care (01) ==
LOC: ER 16:39
DX: S69.81XA Other specified injuries of right wrist, hand and finger(s), initial encounter (principal); E78.00 Pure hypercholesterolemia, unspecified; I10 Essential (primary) hypertension; E11.9 Type 2 diabetes mellitus without complications; E03.9 Hypothyroidism, unspecified; I25.10 Atherosclerotic heart disease of native coronary artery without angina pectoris; G89.29 Other chronic pain; M54.9 Dorsalgia, unspecified; F12.90 Cannabis use, unspecified, uncomplicated; K21.9 Gastro-esophageal reflux disease without esophagitis; J45.909 Unspecified asthma, uncomplicated; J44.9 Chronic obstructive pulmonary disease, unspecified; Z90.710 Acquired absence of both cervix and uterus; Z90.49 Acquired absence of other specified parts of digestive tract; Z95.0 Presence of cardiac pacemaker; Z88.1 Allergy status to other antibiotic agents; Z88.8 Allergy status to other drugs, medicaments and biological substances; Z79.84 Long term (current) use of oral hypoglycemic drugs; Z79.51 Long term (current) use of inhaled steroids; Z79.899 Other long term (current) drug therapy; W22.01XA Walked into wall, initial encounter; Y93.89 Activity, other specified; Y92.89 Other specified places as the place of occurrence of the external cause; Y99.8 Other external cause status
CPT/HCPCS: 73130; 96365; 99284; J0295

== ENCOUNTER 2024-07-29 12:21 | Emergency (ER) | payer MEDICAID ==
[~2024-07-29] VITALS: Ht 165.1 cm; Wt 100.5 kg
[2024-07-29 12:31] VITALS: BP 140/80; PULSE 88; RESP 18; TEMP 97; O2SAT 98
[2024-07-29] MEDS: acetaminophen 325mg tablet PO ONE (14:46)
[2024-07-29 15:11] LABS: BILIRUBIN,URINE NEGATIVE (Neg); CLARITY,URINE CLOUDY (Clear); COLOR,URINE YELLOW (Yellow); GLUCOSE, URINE NEGATIVE (Neg); KETONES,URINE TRACE mg/dl (Neg); LEUKOCYTE ESTERASE ,URINE LARGE (Neg); NITRITES, URINE NEGATIVE (Neg); OCCULT BLOOD,URINE MODERATE (Neg); PROTEIN,URINE 100 mg/dl (Neg)
[2024-07-29 15:18] LABS: UA COLLECTION TYPE CLN CATCH MIDSTREAM
[2024-07-29 15:20] LABS: BACTERIA,URINE 2+ /HPF (Neg); SQUAMOUS EPITHELIAL CELL,UR FEW /LPF (FEW); WBC,URINE TNTC /HPF (0-4)
[2024-07-29 15:21] LABS: MUCUS STRANDS FEW /LPF (Neg); RENAL CELLS, URINE FEW /HPF
[2024-07-29] MEDS ORDERED: CEPH-585 PO (15:29)
== END 2024-07-29 15:39 | disposition home or self-care (01) ==
LOC: ER 12:22
DX: N39.0 Urinary tract infection, site not specified (principal); J44.9 Chronic obstructive pulmonary disease, unspecified; I10 Essential (primary) hypertension; E11.9 Type 2 diabetes mellitus without complications; I25.10 Atherosclerotic heart disease of native coronary artery without angina pectoris; K21.9 Gastro-esophageal reflux disease without esophagitis; E78.00 Pure hypercholesterolemia, unspecified; E03.9 Hypothyroidism, unspecified; F31.9 Bipolar disorder, unspecified; M79.7 Fibromyalgia; F12.90 Cannabis use, unspecified, uncomplicated; Z87.442 Personal history of urinary calculi; Z95.0 Presence of cardiac pacemaker; Z88.6 Allergy status to analgesic agent; Z88.1 Allergy status to other antibiotic agents; Z88.8 Allergy status to other drugs, medicaments and biological substances; Z90.710 Acquired absence of both cervix and uterus; Z90.49 Acquired absence of other specified parts of digestive tract
CPT/HCPCS: 81001; 87077; 87088; 87186; 99283

== ENCOUNTER 2025-03-25 12:13 | Emergency (ER) | payer MEDICAID ==
[~2025-03-25] VITALS: Ht 165.1 cm; Wt 100.5 kg
[~2025-03-25 12:13] MED LIST changes: +DIVA-18 PO; -[UNRECOGNIZED DRUG - CODE] PO
[2025-03-25 12:14] VITALS: BP 147/84; PULSE 82; TEMP 96.5; O2SAT 98
--- NOTE | 2025-03-25 12:51 | RADIOLOGY REPORT ---
CLINICAL INDICATION: LEFT WRIST PAIN AFTER FALL TECHNIQUE: 3 radiographic views of the left wrist were obtained. Comparison: DI HAND, COMPLETE (3VW MIN) on DOS: 04/28/24 FINDINGS/IMPRESSION: Possible nondisplaced fracture of the distal radius.
--- NOTE | 2025-03-25 13:02 | Physician Documentation ---
History of Present Illness ~ Chief Complaint: Wrist pain Stated Complaint: WRIST PAIN Time Seen by MD: 13:02 Primary Medical Doctor: DR SOURAV KELLY This is a 59-year-old female who presents to the emergency department reporting wrist pain after a fall onto her Right outstretched hand. She denies any other concerns or injuries. She notes that she fell because she was walking in a dark room at night, tripped over something. Tetanus within 5 years: Yes Medication Reconciliation Allergies: Coded Allergies: NSAIDS (Non-Steroidal Anti-Inflamma (Verified Allergy, Severe, 07/29/24) valbenazine (Verified Allergy, Severe, ANGIOEDEMA, 07/29/24) baclofen (Verified Allergy, Unknown, 07/29/24) doxycycline (Verified Allergy, Unknown, 07/29/24) ibuprofen (Verified Allergy, Unknown, 07/29/24) ketorolac tromethamine (Verified Allergy, Unknown, 07/29/24) lisinopril (Verified Allergy, Unknown, 02/18/24) medroxyprogesterone acetate (Verified Allergy, Unknown, 10/23/23) naproxen (Verified Allergy, Unknown, 11/07/20) Scheduled Budesonide/Formoterol Fumarate (Symbicort 160-4.5 Mcg Inhaler), 2 PUFFS INH Q12H, (Reported) Bupropion XL (Bupropion Xl), 1 TAB PO DAILY, (Reported) Buspirone Hcl* (Buspar*), 3 TAB PO BID, (Reported) Clonidine HCl (Clonidine HCl), 1 TAB PO Q12H, (Reported) Diphenoxylate HCl/Atropine (Lomotil 2.5-0.025 mg Tablet), 1 TAB PO Q6H Divalproex Sodium (Divalproex Sodium), 1 TAB PO Q12H, (Reported) Duloxetine HCl (Duloxetine HCl), 1 CAP PO DAILY, (Reported) Gabapentin (Gabapentin), 3 CAP PO BID, (Reported) Levothyroxine Sodium (Levothyroxine Sodium), 1 TAB PO DAILY, (Reported) Lorazepam (Ativan), 0.5 TAB PO Q12H, (Reported) Meclizine HCl (Meclizine HCl), 1 TAB PO Q8H, (Reported) Metformin Hcl* (Glucophage*), 2 TAB PO BIDAC, (Reported) Mirabegron (Myrbetriq), 1 TAB PO DAILY, (Reported) Nicotine 7 MG Patch* (Habitrol 7 MG Patch*), 1 PATCH TOP DAILY Nicotine Polacrilex (Nicotine Lozenge), 1 LOZENGE SL Q12H Nortriptyline Hcl (Nortriptyline Hcl), 1 CAP PO DAILY, (Reported) Pantoprazole Sodium (Pantoprazole Sodium), 40 MG PO BKF Rosuvastatin Calcium* (Crestor*), 1 TAB PO DAILY, (Reported) Trazodone HCl (Trazodone HCl), 2 TAB PO HS, (Reported) Scheduled PRN Albuterol Sulfate Nebs* (Proventil Nebs*), 2.5 MG IH Q4H PRN for SOB or wheezing, (Reported) Past Medical History Past Medical History: Vertigo, High Cholesterol, Hypertension, Asthma, COPD, GERD, Kidney Stones, Diabetes, Hypothyroidism, Chronic Back Pain, Fibromyalgia, Bipolar, Depression Past Surgical History: appendectomy, hysterectomy, tubal ligation, other Other Past Surgical History: Bladder suspension Patient History: (CAD) Coronary arteriosclerosis FATHER, Age: 83 MOTHER ( of COVID-19), , Cause: COVID-19 Pacemaker FATHER, Age: 83 Other Past Family History: Heart problems Alcohol Use: None Drug Use: marijuana Lives with: Family Lives In: Home Occupation: employed Review of Systems ROS As stated above in the HPI, otherwise all systems are reviewed and negative. Physical Exam Vital Signs: Temperature: 96.5, Source: Temporal, Heart Rate: 82, Respiratory Rate: 15, BP: 147/84, Pulse Oximetry: 98, Weight: 100.450 Physical Exam General: Alert, no apparent distress. Neck: Full range of motion. Respiratory: Lungs clear, no respiratory distress. Chest: No accessory muscle use. Cardiovascular: Regular rate and rhythm, no murmurs. Gastrointestinal: Soft, nontender, nondistended. Bowels sounds present. Extremities: Reduced/painful ROM right wrist with swelling and mild ecchymosis noted at distal wrist. No obvious deformity. CMS intact to fingers. Neurologic: Oriented x4. Psychiatric: Normal mood and affect. Skin: Normal color, warm and dry. No edema, no ecchymosis. Progress Results/Orders Results/Orders Orders - ANCELMO HARRINGTON NP Ortho Orders (03/25/25 ) Completed Orders - ANCELMO HARRINGTON NP Hydrocodone/Apap 5/325mg Tab ([place] 5/32 (03/25/25 13:35) Medications Received in ER Medications (Trade) Dose Ordered Sig/Cody Route PRN Reason Start Time Stop Time Status Last Admin Dose Admin ([place] 5/325mg tablet) 1 tab ONCE ONCE PO 03/25/25 13:35 03/25/25 13:36 DC 03/25/25 13:51 1 TAB Vital Signs 03/25/25 03/25/25 03/25/25 12:14 13:38 13:51 Temp 96.5 Pulse 82 Resp 15 16 16 B/P (MAP) 147/84 Pulse Ox 98 EKG/XRAY/CT/US/VASC/MRI Bone/Soft Tissue X-Ray (Spine) : Additional Comment [address] [address] DIAGNOSTIC RADIOLOGY Patient: NADER CYR Medical Record: [id number] [facility] : 1965, Age: 59 Sex: Female Location: ER Patient Status: REG ER Service Date/Time: 03/25/25/ 1220 Ordering Physician: DIETER VILLEGAS MD Exam: WRIST, COMPLETE (3VW MIN) CLINICAL INDICATION: LEFT WRIST PAIN AFTER FALL TECHNIQUE: 3 radiographic views of the left wrist were obtained. Comparison: DI HAND, COMPLETE (3VW MIN) on DOS: 04/28/24 FINDINGS/IMPRESSION: Possible nondisplaced fracture of the distal radius. Electronically Signed by:PAULINE EDWARDS MD Date & Time: 03/25/251248 Dictated by: PAULINE EDWARDS MD Dictation date and time: 03/25/25 124 Primary Care Provider: NO PRIMARY CARE PROVIDER cc: OHLFS,DIETER R MD ~ Medical Decision Making General Diff Dx:Considerations: Include: Abrasion, Contusion, Fracture, Hematoma Additional Comment Nondisplaced distal radius fracture. CMS intact. Patient placed in splint. Instructed to follow up with primary care and ortho. Instructed to return if worse Departure Time of Disposition: 13:06 Disposition: 01 HOME / SELF CARE / HOMELESS Impression: Primary Impression: Distal radial fracture Qualified Codes: S52.591A - Other fractures of lower end of right radius, initial encounter for closed fracture Condition: Stable Discharge Instructions: Wrist Fracture Treated With Immobilization Additional Instructions: You have a non-displaced fracture of the right distal radius. Keep the provided splilnt intact continuously for two weeks to allow healing. Elevate, rest, ice. Followup with your primary care provider within a week. Request a referral to orthopedics for recheck. RETURN IF WORSE. Use acetaminophen as needed for pain per the [id number]-[id number] labeling instructions. Referrals: NO PRIMARY CARE PROVIDER (PCP) Education Educated: Patient Educated regarding: diagnosis, treatment, prognosis, need for follow up Signature Scribe Signature: x Attestation: The note accurately reflects work and decisions made by me.Ancelmo De La O NP 03/25/25 14:18 ANCELMO HARRINGTON NP Mar 25, 2025 13:02
[2025-03-25 13:51] VITALS: RESP 16
[2025-03-25] MEDS: HYDROcodone/acetaminophen 5mg/325mg tablet PO ONE (13:51)
== END 2025-03-25 14:04 | disposition home or self-care (01) ==
LOC: ER 12:14
DX: S52.502A Unspecified fracture of the lower end of left radius, initial encounter for closed fracture (principal); E03.9 Hypothyroidism, unspecified; E11.9 Type 2 diabetes mellitus without complications; E78.00 Pure hypercholesterolemia, unspecified; F31.9 Bipolar disorder, unspecified; I10 Essential (primary) hypertension; I25.10 Atherosclerotic heart disease of native coronary artery without angina pectoris; J44.9 Chronic obstructive pulmonary disease, unspecified; K21.9 Gastro-esophageal reflux disease without esophagitis; M79.7 Fibromyalgia; F12.90 Cannabis use, unspecified, uncomplicated; Z88.1 Allergy status to other antibiotic agents; Z88.6 Allergy status to analgesic agent; Z88.8 Allergy status to other drugs, medicaments and biological substances; Z90.49 Acquired absence of other specified parts of digestive tract; Z90.710 Acquired absence of both cervix and uterus; W01.0XXA Fall on same level from slipping, tripping and stumbling without subsequent striking against object, initial encounter; Y93.01 Activity, walking, marching and hiking; Y92.89 Other specified places as the place of occurrence of the external cause; Y99.8 Other external cause status
CPT/HCPCS: 29125; 73110; 99284; A6449

== ENCOUNTER 2025-03-29 13:50 | Emergency (ER) | payer MEDICAID ==
[~2025-03-29] VITALS: Ht 165.1 cm; Wt 100.5 kg
[2025-03-29 14:00] VITALS: BP 164/65
--- NOTE | 2025-03-29 15:10 | Physician Documentation ---
History of Present Illness ~ Chief Complaint: Hand pain Stated Complaint: NUMBNESS IN THUMB Time Seen by MD: 14:21 Primary Medical Doctor: DR BENJAMIN HPI 49-year-old right-hand dominant female who presents to the emergency department for your re-evaluation of a recent closed left distal radius fracture. She was placed in a short-arm splint at the time of treatment on the . X-rays today has been reviewed. Patient presents can she has been having some numbness and tingling some pain to the distal radius. She has grossly logically intact radial, median ulnar nerve. No new injury. She wonders if her splint is too tight. She is awaiting orthopedic follow up and referral from her primary care physician. She does report that this is pending. Tetanus within 5 years: Yes Medication Reconciliation Allergies: Coded Allergies: NSAIDS (Non-Steroidal Anti-Inflamma (Verified Allergy, Severe, 03/29/25) valbenazine (Verified Allergy, Severe, ANGIOEDEMA, 03/29/25) baclofen (Verified Allergy, Unknown, 03/29/25) doxycycline (Verified Allergy, Unknown, 03/29/25) ibuprofen (Verified Allergy, Unknown, 03/29/25) ketorolac tromethamine (Verified Allergy, Unknown, 03/29/25) lisinopril (Verified Allergy, Unknown, 02/18/24) medroxyprogesterone acetate (Verified Allergy, Unknown, 10/23/23) naproxen (Verified Allergy, Unknown, 11/07/20) Scheduled Budesonide/Formoterol Fumarate (Symbicort 160-4.5 Mcg Inhaler), 2 PUFFS INH Q12H, (Reported) Bupropion XL (Bupropion Xl), 1 TAB PO DAILY, (Reported) Buspirone Hcl* (Buspar*), 3 TAB PO BID, (Reported) Clonidine HCl (Clonidine HCl), 1 TAB PO Q12H, (Reported) Diphenoxylate HCl/Atropine (Lomotil 2.5-0.025 mg Tablet), 1 TAB PO Q6H Divalproex Sodium (Divalproex Sodium), 1 TAB PO Q12H, (Reported) Duloxetine HCl (Duloxetine HCl), 1 CAP PO DAILY, (Reported) Gabapentin (Gabapentin), 3 CAP PO BID, (Reported) Levothyroxine Sodium (Levothyroxine Sodium), 1 TAB PO DAILY, (Reported) Lorazepam (Ativan), 0.5 TAB PO Q12H, (Reported) Meclizine HCl (Meclizine HCl), 1 TAB PO Q8H, (Reported) Metformin Hcl* (Glucophage*), 2 TAB PO BIDAC, (Reported) Mirabegron (Myrbetriq), 1 TAB PO DAILY, (Reported) Nicotine 7 MG Patch* (Habitrol 7 MG Patch*), 1 PATCH TOP DAILY Nicotine Polacrilex (Nicotine Lozenge), 1 LOZENGE SL Q12H Nortriptyline Hcl (Nortriptyline Hcl), 1 CAP PO DAILY, (Reported) Pantoprazole Sodium (Pantoprazole Sodium), 40 MG PO BKF Rosuvastatin Calcium* (Crestor*), 1 TAB PO DAILY, (Reported) Trazodone HCl (Trazodone HCl), 2 TAB PO HS, (Reported) Scheduled PRN Albuterol Sulfate Nebs* (Proventil Nebs*), 2.5 MG IH Q4H PRN for SOB or wheezing, (Reported) Past Medical History Past Medical History: Vertigo, High Cholesterol, Hypertension, Asthma, COPD, GERD, Kidney Stones, Diabetes, Hypothyroidism, Chronic Back Pain, Fibromyalgia, Bipolar, Depression Past Surgical History: appendectomy, hysterectomy, tubal ligation, other Other Past Surgical History: Bladder suspension Patient History: (CAD) Coronary arteriosclerosis FATHER, Age: 83 MOTHER ( of COVID-19), , Cause: COVID-19 Pacemaker FATHER, Age: 83 Other Past Family History: Heart problems Alcohol Use: None Drug Use: marijuana Lives with: Family Lives In: Home Occupation: employed Review of Systems All Other Systems at this time: Reviewed and Negative Musculoskeletal: Reports: see HPI, pain, joint pain; Denies: swelling, joint swelling Physical Exam Vital Signs: Temperature: 97.8, Source: Temporal, Heart Rate: 81, Respiratory Rate: 18, BP: 164/65, Pulse Oximetry: 98, Weight: 100.450 General Appearance: alert, WD/WN, mild distress EENT: PERRL/EOMI Neck: normal inspection Respiratory: lungs clear, normal breath sounds Cardiovascular: normal peripheral pulses Back: normal inspection Shoulder: normal inspection Wrist: limited ROM, pain Hand: normal inspection Digit: normal inspection Digit Strength: normal Nail Bed: normal inspection Distal Function: normal pulse Skin: normal color Neurologic: oriented x4 Psychiatric: normal mood/affect Progress Results/Orders Results/Orders Orders - SYLVIA FONTENOT Hydrocodone/Apap 5/325mg Tab ([place] 5/32 (03/29/25 15:05) Ortho Orders (03/29/25 ) Vital Signs 03/29/25 14:00 Temp 97.8 Pulse 81 Resp 18 B/P (MAP) 164/65 Pulse Ox 98 Medical Decision Making Additional Comment 59-year-old female in left short arm splint with excellent cap refill and radial median ulnar nerve involvement. Your arm splint is well fitting it is clean dry and intact. Clinical suspicion is that patient's pain is secondary to not having a splint immobilizing the proximal radial head that is the patient has been supinate and pronating. I do feel the splint at this time is sufficient and now that she has been educated on pronation and supination in addition I will be providing her with one time dose of pain medicine and a sling to limit the motion. She will continue with her follow up for definitive fracture management. Again x-rays were reviewed in the emergency department and are reassuring. Safely discharged to your primary care physician and aftercare and splint care instructions. Departure Impression: Primary Impression: Closed fracture of left distal radius Qualified Codes: S52.502A - Unspecified fracture of the lower end of left radius, initial encounter for closed fracture Condition: Improved Discharge Instructions: Wrist Fracture Treated With Immobilization Additional Instructions: Please limit your pronation and supination. Please wear sling and continue with your primary care follow up for orthopedic definitive management. Referrals: NO PRIMARY CARE PROVIDER (PCP) Education Educated: Patient Educated regarding: diagnosis, treatment Signature Scribe Signature: . Attestation: . SYLVIA FONTENOT Mar 29, 2025 15:10
[2025-03-29] MEDS: HYDROcodone/acetaminophen 5mg/325mg tablet PO ONE (15:22)
[2025-03-29 15:25] VITALS: PULSE 78; RESP 18; TEMP 97.8; O2SAT 99
== END 2025-03-29 15:29 | disposition home or self-care (01) ==
LOC: ER 13:51
DX: S52.592A Other fractures of lower end of left radius, initial encounter for closed fracture (principal); I10 Essential (primary) hypertension; F31.9 Bipolar disorder, unspecified; F12.90 Cannabis use, unspecified, uncomplicated; E78.00 Pure hypercholesterolemia, unspecified; E11.9 Type 2 diabetes mellitus without complications; E03.9 Hypothyroidism, unspecified; G89.29 Other chronic pain; I25.10 Atherosclerotic heart disease of native coronary artery without angina pectoris; M79.7 Fibromyalgia; K21.9 Gastro-esophageal reflux disease without esophagitis; J44.9 Chronic obstructive pulmonary disease, unspecified; Z90.49 Acquired absence of other specified parts of digestive tract; Z87.442 Personal history of urinary calculi; Z88.1 Allergy status to other antibiotic agents; Z88.6 Allergy status to analgesic agent; Z88.8 Allergy status to other drugs, medicaments and biological substances; Z90.710 Acquired absence of both cervix and uterus; Z95.0 Presence of cardiac pacemaker; Z79.84 Long term (current) use of oral hypoglycemic drugs; Z79.899 Other long term (current) drug therapy; X58.XXXA Exposure to other specified factors, initial encounter; Y93.89 Activity, other specified; Y92.89 Other specified places as the place of occurrence of the external cause; Y99.8 Other external cause status
CPT/HCPCS: 99284; A4565

== ENCOUNTER 2025-05-26 11:32 | Outpatient (CLI) | payer MEDICAID ==
--- NOTE | 2025-05-26 12:11 | RADIOLOGY REPORT ---
EXAM: CT CT HEAD INDICATION: INJURY OF HEAD, INITIAL ENCOUNTER TECHNIQUE: CT of the head without intravenous contrast. Radiation Dose : 1. Head: CT Dose: CTDI volume is 65 mGy. Dose-length product is 1160 mGy*cm The dose indicators for CT are the volume Computed Tomography (CT) Dose Index (CTDIvol) and the Dose Length Product (DLP), and are measured in units of mGy and mGy-cm, respectively. These indicators are not patient dose, but values generated from the CT scanner acquisition factors. The report includes radiation exposure data for exposures received during this examination. COMPARISON: CT HEAD on DOS: 12/14/22 FINDINGS: There is no evidence of acute intracranial hemorrhage, extra-axial collection, mass effect, midline shift, herniation or hydrocephalus. The ventricles, sulci and cisterns are age appropriate. The oro-white differentiation is intact. The visualized paranasal sinuses and mastoid air cells are clear. The surrounding soft tissues and osseous structures are unremarkable. IMPRESSION: No acute intracranial abnormality. Radiation optimization: All CT scans at this facility use at least one of these dose optimization techniques: automated exposure control mA and/or kV adjustment per patient size (includes targeted exams where dose is matched to clinical indication) or iterative reconstruction.
== END 2025-05-26 23:59 | disposition home or self-care (01) ==
LOC: RAD 11:32
PROVIDERS: ATTEND Family Medicine
DX: S09.90XA Unspecified injury of head, initial encounter (principal); R42 Dizziness and giddiness; R11.0 Nausea; X58.XXXA Exposure to other specified factors, initial encounter; Y93.89 Activity, other specified; Y92.89 Other specified places as the place of occurrence of the external cause; Y99.8 Other external cause status
CPT/HCPCS: 70450

== ENCOUNTER 2025-06-18 15:27 | Outpatient (CLI) | payer MEDICAID ==
--- NOTE | 2025-06-18 16:22 | RADIOLOGY REPORT ---
DI WRIST, COMPLETE (3VW MIN) COMPARISON: DI WRIST, COMPLETE (3VW MIN) on DOS: 03/25/25 INDICATION: CLOSED FRACTURE DISTAL END OF LEFT RADIUS W/NON UNION FINDINGS/IMPRESSION: Nondisplaced fracture of the distal radius with probable intra-articular extension.
--- NOTE | 2025-06-18 16:22 | RADIOLOGY REPORT ---
DI FOREARM,INCL.ONE JOINT COMPARISON: None INDICATION: CLOSED FRACTURE DISTAL END OF LEFT RADIUS W/NON UNION FINDINGS/IMPRESSION: No acute fracture or dislocation of the proximal ulna and radius.
--- NOTE | 2025-06-18 16:23 | RADIOLOGY REPORT ---
DI ELBOW, COMPLETE (3VW MIN) COMPARISON: DI WRIST, COMPLETE (3VW MIN) on DOS: 06/18/25, DI WRIST, COMPLETE (3VW MIN) on DOS: 03/25/25 INDICATION: CLOSED FRACTURE DISTAL END OF LEFT RADIUS W/NON UNION FINDINGS/IMPRESSION: No acute fracture or dislocation. No significant joint effusion.
== END 2025-06-18 23:59 | disposition home or self-care (01) ==
LOC: RAD 15:27
PROVIDERS: ATTEND Family Medicine
DX: S52.502K Unspecified fracture of the lower end of left radius, subsequent encounter for closed fracture with nonunion (principal); X58.XXXD Exposure to other specified factors, subsequent encounter
CPT/HCPCS: 73080; 73090; 73110